=== PATIENT | female | born 1960 | race Caucasian/White ===

== ENCOUNTER → 2019-10-25 10:34 | Outpatient (CLI) | payer OTHER, SELFPAY ==
--- NOTE | ~2019-10-25 | MM_ITS ---
EXAMINATION: MM screening garrett BI w sruthi HISTORY: Screening TECHNIQUE: Craniocaudal and mediolateral oblique 3-D tomosynthesis images were obtained and synthetic 2-D images were generated. CAD analysis was submitted and interpreted. COMPARISON: Comparison to multiple prior studies sequentially, with oldest reviewed study dated 04/2014. BREAST PARENCHYMAL COMPOSITION: There are scattered areas of fibroglandular density. FINDINGS: There is no evidence of suspicious mass, calcification, or architectural distortion to sugg est malignancy in either breast. There has been no suspicious interval change. IMPRESSION: 1. No mammographic evidence of malignancy. 2. Recommend routine screening mammography in one year. BI-RADS Category 1: Negative Reviewed, dictated and finalized at location A.
--- NOTE | ~2019-10-25 | DEXA_ITS ---
Bone Density Report Name: Palma Zuniga Age: 59 Sex: Female Ethnicity: White Date of : 1960 Indication: postmenopausal; screening for osteoporosis; Referring Provider: WILFREDO, SANKET Study: Bone densitometry was performed. Exam Date: October 25, 2019 Accession number: [id number] Bone Density: Region BMD T-score Z-score Classification AP Spine (L1-L4) 1.108 0.6 1.9 Normal Femoral Neck (Left) 0.878 0.3 1.5 Normal Total Hip (Left) 1.088 1.2 2.1 Normal Femoral Neck (Right) 0.919 0.6 1.8 Normal Total Hip (Right) 1.019 0.6 1.5 Normal Total Hip Mean 1.054 0.9 1.8 Normal World Health Organization criteria for BMD impression classify patients as: Normal (T-score at or above -1.0), Osteopenia (T-score between -1.0 and -2.5), or Osteoporosis (T-score at or below -2.5). 10-year Fracture Risk: FRAX not reported because: All T-scores for Spine Total, Hip Total, Femoral Neck at or above -1.0 Clinical Information Provided by Patient: Has used the following medications: Vitamin D, Calcium Patient maximum height was 70.5 Menopause Age: 54 No regular weight bearing exercise Drinks caffeinated beverages Onset of menses at age 13 Number of children 0 Impression: The patient has normal bone mass. Discussion: BONE DENSITY IS ABOVE THE MINIMUM DESIRABLE LEVEL AT ALL SKELETAL SITES TESTED. This patient?s bone mineral density is above the minimum desirable level (T-score -1.0 or better) at all sites measured. The patient should follow a healthful lifestyle (good nutrition with adequate calcium and vitamin D, and appropriate weight-bearing exercise). Follow-Up: Consider repeating this study in 5 years or sooner if there is some new clinical indication. Reported by: ANA M on 10/25/2019 11:09:00 AM. Reviewed, dictated and finalized at location AEden LOWE
== END ==
PROVIDERS: Visit Provider Nurse Practitioner
DX: Z12.31 Encounter for screening mammogram for malignant neoplasm of breast (principal); Z78.0 Asymptomatic menopausal state
CPT/HCPCS: 77063; 77067; 77080

== ENCOUNTER → 2020-10-28 10:06 | Outpatient (CLI) | payer OTHER, SELFPAY ==
--- NOTE | ~2020-10-28 | MM_ITS ---
EXAMINATION: MM screening garrett BI w sruthi HISTORY: Screening mammogram TECHNIQUE: Craniocaudal and mediolateral oblique 3-D tomosynthesis images were obtained and synthetic 2-D images were generated. CAD analysis was submitted and interpreted. COMPARISON: 10/25/2019 bilateral digital screening mammogram 06/22/2018 diagnostic right mammogram and complete right breast ultrasound bilateral digital screening mammogram BREAST PARENCHYMAL COMPOSITION: There are scattered areas of fibroglandular density. FINDINGS: There is a biopsy marker on the left; history of prior benign left breast biopsy. There is no evidence of suspicious mass, calcification, or architectural distortion to suggest malignancy in e ither breast. There has been no suspicious interval change. IMPRESSION: 1. No mammographic evidence of malignancy. 2. Recommend routine screening mammography in one year. BI-RADS Category 1: Negative Reviewed, dictated and finalized at location A.
== END ==
PROVIDERS: PCP Family Medicine; Visit Provider Nurse Practitioner
DX: Z12.31 Encounter for screening mammogram for malignant neoplasm of breast (principal)
CPT/HCPCS: 77063; 77067

== ENCOUNTER → 2021-10-30 10:58 | Outpatient (CLI) | payer OTHER, SELFPAY ==
--- NOTE | ~2021-10-30 | MM_ITS ---
EXAMINATION: MM screening garrett BI w sruthi HISTORY: Screening mammogram TECHNIQUE: Craniocaudal and mediolateral oblique 3-D tomosynthesis images were obtained and synthetic 2-D images were generated. CAD analysis was submitted and interpreted. COMPARISON: 10/28/2020, 10/25/2019 bilateral screening mammogram examinations BREAST PARENCHYMAL COMPOSITION: There are scattered areas of fibroglandular density. FINDINGS: Biopsy marker is again noted on the left; history of prior benign left breast biopsy. Stabl e mild fibroglandular asymmetry. There is no evidence of suspicious mass, calcification, or business intelligence architect ural distortion to suggest malignancy in either breast. There has been no suspicious interval change. IMPRESSION: 1. No mammographic evidence of malignancy. 2. Recommend routine screening mammography in one year. BI-RADS Category 2: Benign finding(s). Reviewed, dictated and finalized at location A.
== END ==
PROVIDERS: PCP Family Medicine; Visit Provider Nurse Practitioner
DX: Z12.31 Encounter for screening mammogram for malignant neoplasm of breast (principal)
CPT/HCPCS: 77063; 77067

== ENCOUNTER → 2022-11-01 11:05 | Outpatient (CLI) | payer OTHER, SELFPAY ==
--- NOTE | ~2022-11-01 | MM_ITS ---
EXAMINATION: MM screening garrett BI w sruthi HISTORY: Screening mammogram TECHNIQUE: Craniocaudal and mediolateral oblique 3-D tomosynthesis images were obtained and synthetic 2-D images were generated. CAD analysis was submitted and interpreted. COMPARISON: 10/30/2021, 10/28/2020, 11/11/2019 bilateral screening mammogram examinations BREAST PARENCHYMAL COMPOSITION: There are scattered areas of fibroglandular density. FINDINGS: Biopsy marker is again noted on the left; history of prior benign left breast biopsy. There is no evidence of suspicious mass, calcification, or architectural distortion to suggest malignancy in either breast. There has been no suspicious interval change. IMPRESSION: 1. No mammographic evidence of malignancy. 2. Recommend routine screening mammography in one year. BI-RADS Category 1: Negative Reviewed, dictated and finalized at location A.
== END ==
PROVIDERS: PCP Family Medicine; Visit Provider Nurse Practitioner
DX: Z12.31 Encounter for screening mammogram for malignant neoplasm of breast (principal)
CPT/HCPCS: 77063; 77067

== ENCOUNTER 2023-11-04 13:06 | Outpatient (CLI) | payer OTHER, SELFPAY ==
--- NOTE | ~2023-11-04 | MM_ITS ---
EXAMINATION: MM screening garrett BI w sruthi HISTORY: Screening mammogram TECHNIQUE: Craniocaudal and mediolateral oblique 3-D tomosynthesis images were obtained and synthetic 2-D images were generated. CAD analysis was submitted and interpreted. COMPARISON: 11/01/2022, 10/30/2021, 10/28/2020, 10/25/2019 BREAST PARENCHYMAL COMPOSITION:Not Dense. There are scattered areas of fibroglandular density. FINDINGS: No suspicious mass, calcification, or architectural distortion are identified in either cari ast to suggest malignancy. There has been no suspicious interval change. IMPRESSION: No mammographic evidence of malignancy. Recommend routine screening mammography in one year. BI-RADS Category 1: Negative Reviewed, dictated and finalized at location .
== END 2023-11-04 13:07 | disposition home or self-care (01) ==
LOC: MICIMG 13:08
PROVIDERS: PCP Family Medicine; Visit Provider Nurse Practitioner
DX: Z12.31 Encounter for screening mammogram for malignant neoplasm of breast (principal)
CPT/HCPCS: 77063; 77067

== ENCOUNTER 2024-04-02 07:58 | Outpatient (CLI) | payer OTHER, SELFPAY ==
--- NOTE | ~2024-04-02 | DEXA_ITS ---
Bone Density Report Name: EUSEBIA EISENBERG Age: 64 Sex: Female Ethnicity: White Date of : 1960 Indication: postmenopausal; screening for osteoporosis; Referring Provider: NITESH, ARABELLA Study: Bone densitometry was performed. Exam Date: April 02, 2024 Accession number: [id number] Bone Density: Region BMD T-score Z-score Classification AP Spine(L1-L4) 1.138 0.8 2.5 Normal Femoral Neck (Left) 0.887 0.3 1.8 Normal Total Hip (Left) 1.064 1.0 2.1 Normal Femoral Neck (Right) 0.954 0.9 2.4 Normal Total Hip (Right) 1.017 0.6 1.7 Normal Total Hip Mean 1.041 0.8 1.9 Normal World Health Organization criteria for BMD impression classify patients as: Normal (T-score at or above -1.0), Osteopenia (T-score between -1.0 and -2.5), or Osteoporosis (T-score at or below -2.5). 10-year Fracture Risk: FRAX not reported because: All T-scores for Spine Total, Hip Total, Femoral Neck at or above -1.0 Clinical Information Provided by Patient: Patient maximum height was 70.5 Menopause Age: 54 No regular weight bearing exercise Drinks caffeinated beverages Onset of menses at age 13 Number of children 0 Impression: The patient has normal bone mass. Discussion: BONE DENSITY IS ABOVE THE MINIMUM DESIRABLE LEVEL AT ALL SKELETAL SITES TESTED. This patient?s bone mineral density is above the minimum desirable level (T-score -1.0 or better) at all sites measured. The patient should follow a healthful lifestyle (good nutrition with adequate calcium and vitamin D, and appropriate weight-bearing exercise). Follow-Up: Consider repeating this study in 5 years or sooner if there is some new clinical indication. Reported by: ANA M on 04/02/2024 8:33:00 AM. Reviewed, dictated and finalized at location A. [facility]
--- OUTSIDE RECORDS SUMMARY | 2024-04-02 08:06 | XMS_ITS | Clinical Summary ---
Author Organization [facility] Address [address] [place] [address] Phone Care Team Providers Care Mathematics Professor Name Role Phone Paradise Villanueva Primary Care Provider [phone] Allergies Active Allergy Reactions Criticality Noted Date Comments Acetaminophen-Codeine Shortness of Breath/Wheezing High 08/21/2020 Medications lisinopril-hydr oCHLOROthiazide (ZESTORETIC) 20-25 mg tablet Take 1 Tablet by mouth daily. Active venlafaxine (EFFEXOR) 75 mg tablet Take 225 mg by mouth daily. Active acyclovir (ZOVIRAX) 400 mg tablet Take 400 mg by mouth daily. Active buPROPion HCL (WELLBUTRIN XL) 150 mg Extended Release 24 hour tablet Take 150 mg by mouth daily. Active simvastatin (ZOCOR) 20 mg tablet Take 20 mg by mouth daily at bedtime. Active calcium as carbonate (CALTRATE) 1,500 mg (600 mg elemental) Tablet Take 600 mg by mouth daily. Active cholecalciferol , vitamin D3, 5,000 unit Take 5,000 Units by mouth daily. Active diazePAM (VALIUM) 5 mg tabletIndicatio ns:Cervical stenosis of spine Take 1 Tablet (5 mg) by mouth every 8 hours as needed for Spasm. 60 Tablet 09/03/2020 10:42 AM CDT 09/03/2020 Active docusate sodium (COLACE) 100 mg capsule Take 1 Capsule (100 mg) by mouth 2 times daily as needed for Constipation . 30 Capsule 09/03/2020 10:42 AM CDT 09/03/2020 Active HYDROcodone-asya taminophen (NORCO) 7.5-325 mg TabletIndicatio ns:Cervical stenosis of spine Take 1 Tablet by mouth every 4 hours as needed for Pain. Max Daily Amount: 6 Tablets 42 Tablet 09/03/2020 10:42 AM CDT 09/03/2020 Active Social History Tobacco Use Types Packs/Day Years Used Date Smoking Tobacco: Never Smokeless Tobacco: Never Alcohol Use Standard Drinks/Week Comments Not Currently 0 (1 standard drink = 0.6 oz pur e alcohol) Comments No Sex and Gender Information Value Date Recorded Sex Assigned at Not on file Legal Sex Female 3:45 PM CDT Gender Identity Not on file Sexual Orientation Not on file Last Filed Vital Signs Vital Sign Reading Time Taken Comments Blood Pressure 146/71 09/03/2020 11:23 AM CDT Pulse 63 09/03/2020 11:23 AM CDT Temperature 36.7 C (98.1 F) 09/03/2020 11:23 AM CDT Respiratory Rate 18 09/03/2020 11:23 AM CDT Oxygen Saturation 100% 09/03/2020 11:23 AM CDT Inhaled Oxygen Concentration - - Weight 116.6 kg (257 lb) 09/02/2020 8:31 AM CDT Height 177.8 cm (5' 10 ) 09/02/2020 8:31 AM CDT Body Mass Index 36.88 09/02/2020 8:31 AM CDT Plan of Treatment Health Maintenance Due Date Last Done Comments CERVICAL CANCER SCREENING 1991 BREAST CANCER SCREENING 2001 COLORECTAL SCREENING 2006 Colorectal Cancer Screening 2006 FIT-DNA Q 3 years 2006 FIT/FOBT Q 1 year 2006 Flex Sig/CT Colonography Q 5 years 2006 ZOSTER VACCINE (1 of 2) 2011 DTAP/TDAP/TD VACCINES (2 - T d or Tdap) 03/13/2023 03/13/2013, 07/25/2003 INFLUENZA VACCINE (#1) 2023 RSV VACCINE (60+ or ) (1 - 1-dose 75+ series) 02/13/2036 PNEUMOCOCCAL VACCINE 0-64 YEARS Aged Out No longer eligible b ased on patient's age to complete this topic Medical Devices Implanted Type Area Respiratory Care Program Director Device Identifier Shelf Expiration Date Model / Serial / Lot Hemostatic Surgiflo 8ml W/Thrombin 2994 - [id number] Implanted:Qty: 1 on 09/02/2020 by Ray Kennedy MD at [facility] Hemostatic N/A: Neck [employer] 08/20/2021 [id number] / / [id number] Plate Zevo Ac 3lvl Ti 57mm [id number] - [id number] Implanted:Qty: 1 on 09/02/2020 by Ray Kennedy MD at [facility] Plate N/A: Spine Cervical Anterior [employer]AMOR DANEK [id number] / / N/A Description:Load no. [id number] Sterilized Sep 01 Screw Zevo Va Sd 3.5x13mm [id number] - [id number] Implanted:Qty: 8 on 09/02/2020 by Ray Kennedy MD at [facility] Screw N/A: Spine Cervical Anterior [employer]AMOR [employer]ANEK [id number] / / N/A Description:Load no. [id number] Sterilized Sep 01 Allograft Bone Cornerstone [id number] - [id number] Implanted:Qty: 1 on 09/02/2020 by Ray Kennedy MD at [facility] N/A: Spine Cervical Anterior [employer] SOFAMOR DANEK 11/27/2022 [id number] / [id number] / [id number] Description:AKUA REQ#[id number] Allograft Bone Cornerstone [id number] - [id number] Implanted:Qty: 1 on 09/02/2020 by Ray Kennedy MD at [facility] N/A: Spine Cervical Anterior [employer]- SOFAMOR DANEK 01/28/2023 [id number] / [id number] / [id number] Allograft Bone Cornerstone [id number] - [id number] Implanted:Qty: 1 on 09/02/2020 by Ray Kennedy MD at [facility] N/A: Spine Cervical Anterior [employer] SOFAMOR DANEK 01/09/2023 [id number] / [id number] / [id number] Explanted Type Area Respiratory Care Program Director Device Identifier Shelf Expiration Date Model / Serial / Lot Pin Holding Zevo Plate [id number] - [id number] Explanted:Qty : 2 on 09/02/2020 by Ray Kennedy MD at [facility] Plate N/A: Spine Cervical Anterior [employer]- SOFAMOR WEST [id number] / / N/A Description:Load no. [id number] Sterilized Sep 01 [facility]#[id number] Insurance [facility] Address: [place] [address] RX [employer] PLANS (INTERNAL) [facility] RX [employer] RX Member Subscriber Plan / Payer (Ef fective for All Dates) Name:Palma Zuniga Relation to Subscriber:Self Name:Palma Zuniga Payer ID:Not on file Group ID:[id number] Type:RX Commercial Address: [place] [place] Advance Directives For more information, please contact: [phone] * Full Code (Latest Code Status on File) Date Activated Date Inactivated Comments 09/03/2020 8:18 AM 09/03/2020 1:45 PM Care Teams Mathematics Professor Relationship Specialty Start Date End Date Paradise Villanueva DO [address] [place] [id number] PCP - General Family Practice 08/22/20
--- OUTSIDE RECORDS SUMMARY | 2024-04-02 08:06 | XMS_ITS | Encounter Summary ---
Author Organization [facility] Address 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 mechanic Encounter Details Date Type Department Care Team (Late st Contact Info) Description 09/03/2020 Telephone [facility] Admitting [address] [place] [address] [place] [id number] [address] Medical Management (Spoke Alec/ Sunita @ Dr Lu Oneill conduit mechanic) Social History Tobacco Use Types Packs/Day Years Used Date Smoking Tobacco: Never Smokeless Tobacco: Never Alcohol Use Standard Drinks/Week Comments Not Currently 0 (1 standard drink = 0.6 oz pur e alcohol) Comments No Sex and Gender Information Value Date Recorded Sex Assigned at Not on file Legal Sex Female 3:45 PM CDT Gender Identity Not on file Sexual Orientation Not on file COVID-19 Exposure Response Date Recorded In the last month, have you been in contact with someone who was confirmed or suspected to have Coronavirus / COVID-19? No / Unsure 09/02/2020 5:32 PM CDT documented as of this encounter Plan of Treatment Not on file documented as of this encounter Visit Diagnoses Not on filedocumented in this encounter Care Teams Fresh Work Inspector Relationship Specialty Start Date End Date Paradise Villanueva DO [address] [place] [address] [address] [place] [address] PCP - General Family Practice 08/22/20 documented as of this encounter
--- OUTSIDE RECORDS SUMMARY | 2024-04-02 08:06 | XMS_ITS | Clinical Summary ---
Author Organization [facility] Address [facility] [place] [address] Care Team Providers Care Breaker Tender Name Role Phone RichParadise Danuta DO Primary Care Provider Yoshi Loaiza DO Unavailable [phone] Allergies Active Allergy Reactions Criticality Noted Date Comments Acetaminophen-Codeine Shortness of Breath High 08/21 Codeine Unknown 08/29/2012 Estrogens Other (see comment) 09/06/2012 Medications Azelaic Acid 15 % gel Apply topically 2 (two) times daily. APPLY TO AFFECTED AREA 3 Active venlafaxine XR (EFFEXOR-XR) 75 MG 24 hr capsuleIndication s:Depression, unspecified depression type Take 3 capsules (225 mg total) by mouth daily. 270 capsule 3 3 Active lisinopril-hydroC HLOROthiazide (ZESTORETIC) 20-25 MG tabletIndications :Primary hypertension Take 1 tablet by mouth daily. 90 tablet 3 3 Active buPROPion XL (WELLBUTRIN XL) 150 MG 24 hr tabletIndications :Depression, unspecified depression type Take 1 tablet (150 mg total) by mouth daily. 90 tablet 3 3 Active acyclovir (ZOVIRAX) 400 MG tabletIndications :Herpes simplex type II infection Take 1 tablet (400 mg total) by mouth daily. 90 tablet 3 3 Active simvastatin (ZOCOR) 40 MG tabletIndications :Hypercholesterol emia Take 1 tablet (40 mg total) by mouth nightly at bedtime. 90 tablet 1 3 Active Active Problems Problem Noted Date Diagnosed Date H/O cervical spine surgery 09/18/2020 Morbid obesity (CMS/HCC HHS/HCC) 08/14/2020 Hand dermatitis 08/14/2020 Elevated fasting glucose 03/16/2016 Cervical stenosis of spine 03/20/2015 Acne 11/26/2014 Eczema 03/13/2013 Depression 09/04/2012 Herpes simplex type II infection 09/04/2012 Hypercholesterolemia 09/04/2012 Hypertension 09/04/2012 Overview (06/09/2019): Description: 01/25/1997 Lumbar degenerative disc disease 09/04/2012 Resolved Problems Problem Noted Date Diagnosed Date Resolved Date Preventative health care 09/29/2021 Screening for colon cancer 09/29/2021 0 10/05/2021 Hospital discharge follow-up 09/18/2020 09/22/2020 Preventative health care 08/14/2020 Need for prophylactic vaccin ation and inoculation against influenza 10/31/2019 11/02/2019 Encounter for screening mamm ogram for malignant neoplasm of breast 06/28/2019 11/02/2019 Need for shingles vaccine 06/28/2019 Encounter for preventive health examination 08/29/2012 11/02/2019 Immunizations Name Administration Dates Next Due Flublok (Quadrivalent) 10/31/2019 Influenza (Generic) 10/22/2016,03/02/2016,2013 Influenza Adult (Generic) 12/12/2018,12/21/2017 PFIZER COVID-19 (ORIGINAL FO RMULATION, PURPLE CAP) mRNA, LNP-S, PF, 30 MCG/0.3 ML DOSE 07/31/2020,07/10/2020 Shingrix 10/31/2019,06/28/2019 Td (Tenivac) preservative free 07/25/2003 Tdap (Generic) 03/13/2013 Family History Medical History Relation Comments Breast Cancer Maternal Aunt RENAL FAILURE Mother Diabetes Other Hypertension Other CERVICAL CANCER Sister Relation Status Comments Maternal Aunt Mother Other Sister Social History Tobacco Use Types Packs/Day Years Used Date Smoking Tobacco: Never Smokeless Tobacco: Never Alcohol Use Standard Drinks/Week Comments Yes 0 (1 standard drink = 0.6 oz pur e alcohol) 2-3 BEERS A WEEK PHQ-2 Answer Date Recorded Patient Health Questionnaire-2 Score 0 10/06/2022 Comments Unknown Sex and Gender Information Value Date Recorded Sex Assigned at Not on file Legal Sex Female 7:19 PM CDT Gender Identity Not on file Sexual Orientation Not on file Occupation Industry Job Start Date Job End Date [employer] Not on file Not on file Not on file Last Filed Vital Signs Vital Sign Reading Time Taken Comments Blood Pressure 120/68 10/06/2022 8:56 AM CDT Pulse 70 10/06/2022 8:56 AM CDT Temperature - - Respiratory Rate - - Oxygen Saturation 98% 01/16/2020 10:51 AM 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 Inhaled Oxygen Concentration - - Weight 117.9 kg (260 lb) 10/06/2022 8:56 AM CDT Height 177.8 cm (5' 10 ) 10/06/2022 8:56 AM CDT Body Mass Index 37.31 10/06/2022 8:56 AM CDT Plan of Treatment Health Maintenance Due Date Last Done Comments Cervical Cancer Screening Pap Smear (Age 30 to 64) Every 3 Years 1961 Hepatitis C 1979 Cervical Cancer Screening Pap with HPV Testing (Age 30 to 64) Every 5 Years 1991 Cervical Cancer Screening with HPV 1991 Colorectal Cancer Screening Colonoscopy (10 Years) 09/21/2021 09/22/2011 DTaP, Tdap and Td Vaccines (2 - Td or Tdap) 03/13/2023 03/13/2013, 07/25/2003 Annual Physical 10/07/2023 10/06/2022, 0810/2021, 08/14/2020, Additional history exists COVID-19 Vaccine ( season) 2023 03/01/2021, 07/31/2020, 07/10/2020 Mammogram Screening 10/31/2023 10/30/2021, 10/28/2020, 06/16/2013 Influenza Adult (#1) 2023 03/01/2021, 10/31/2019, 12/12/2018, Additional history exists RSV Immunization or 60+ Years (1 - 1-dose 75+ series) 02/13/2036 Zoster Vaccines Completed 10/31/2019, 06/28/2019 Meningococcal B Vaccine Aged Out No l onger eligible based on patient's age to complete this topic Meningococcal Vaccine Aged Out No casper linda eligible based on patient's age to complete this topic Pneumococcal Vaccine: Pediatrics (0 to 5 Years) and At-Risk Patients (6 to 64 Years) Aged Out No longer eligible based on patient's age to complete this topic RSV Immunizations Under 20 Months Aged Out No longer eligible based on patient's age to complete this topic Procedures Procedure Name Priority Date/Time Associated Diagnosis Comments MAMMOGRAM GENERIC (SCAN ORDER) Routine 10/30/2021 COLONOSCOPY Routine 09/22/2011 12:00 AM CDT from Last 3 Months or Most Recently Relevant to Health Maintenance Results * MAMMOGRAM (10/30/2021) Anatomical Region Laterality Modality Other us Documents Scanned SCANNING Final Result * Colonoscopy (09/22/2011 12:00 AM CDT) 09/22/2011 09/22/2011 Narrative [facility] TO EPIC CONVERSION - 09/22/2011 12:00 AM CDT Documented hx of procedure Procedure Note Riki Brunson MD - 12/25/2017 Documented hx of procedure us Generic Conversion Md BRUNSON GI PROCEDURE ORDERABLES Final Result [facility] TO EPIC CONVERSION from Last 3 Months or Most Recently Relevant to Health Maintenance Insurance [facility] Care Teams Breaker Tender Relationship Specialty Start Date End Date Paradise Villanueva DO [address] [place] [address] PCP - General 02/26/15 Yoshi Loaiza DO [address] [place] [address] Director Print 11/17/21
--- OUTSIDE RECORDS SUMMARY | 2024-04-02 08:06 | XMS_ITS | Clinical Summary ---
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 Name Role Phone Unknown, Notinfile Unavailable Unavailable Deion Pelaez DO Primary Care Provider Allergies Active Allergy Reactions Criticality Noted Date Comments Acetaminophen-Codeine Shortness of breath High 08/21 Codeine Unknown 08/29/2012 Medications Cequa 0.09 % dropperette INSTILL ONE DROP IN EACH EYE TWICE DAILY 03/07/19 24 Active Miebo 100 % drops 05/27/19 24 Active azelaic acid 15 % gel Apply topically 2 (two) times a day 09/11/19 23 Active acyclovir (ZOVIRAX) 400 mg tablet Take 1 tablet (400 mg total) by mouth daily 100 tablet 10/21/19 24 Active buPROPion XL (WELLBUTRIN XL) 150 mg 24 hr tablet Take 1 tablet (150 mg total) by mouth daily 90 tablet 1 10/21/19 24 Active lisinopril-hydr oCHLOROthiazide (ZESTORETIC) 20-25 mg per tablet Take 1 tablet by mouth daily 90 tablet 1 10/21/19 24 Active venlafaxine XR (EFFEXOR-XR) 75 mg 24 hr capsule Take 1 capsule (75 mg total) by mouth daily 90 capsule 1 10/21/19 24 Active simvastatin (ZOCOR) 40 mg tabletIndicatio ns:Dyslipidemia TAKE 1 TABLET BY MOUTH EVERY DAY 90 tablet 1 03/05/19 25 Active simvastatin (ZOCOR) 40 mg tabletIndicatio ns:Dyslipidemia Take 1 tablet (40 mg total) by mouth daily 100 tablet 10/21/19 24 025 Discontinued Active Problems Problem Noted Date Diagnosed Date Dyslipidemia 05/30/2023 Overview (05/30/2023): Chronic, stable condition statin LDL was 140 in September 2022 and her Zocor was increased from 20 to 40 mg Routine physical examination 05/30/2023 Overview (05/30/2023): New: May 30, 2023 Neuropathy 05/30/2023 Mild mood disorder 05/30/2023 Overview (05/30/2023): Doing well overall on Effexor Continue same medications Morbid obesity 08/14/2020 Overview (05/30/2023): BMI 38 with hypertension and dyslipidemia Working on weight management Elevated fasting glucose 03/16/2016 Overview (05/30/2023): Overall doing well Fasting glucose: 135 in June 2019, 129 in July 2020, 134 in September 2022 A1c 5.9 in September 2021 A1c 6.2 in September 2022 Hypertension 09/04/2012 Overview (05/30/2023): Description: 01/25/1997 Chronic, stable condition on Zestoretic Continue same medications Lumbar degenerative disc disease 09/04/2012 Immunizations Name Administration Dates Next Due Influenza, Quadrivalent, Rec ombinant, Egg Free, Preservative Free, Intramuscular 10/31/2019 Influenza, Quadrivalent, Spl it, Preservative Free, Intramuscular 12/12/2018 Influenza, Unspecified 11/21/2022,2018,12/21/2017,10/22,03/02/2016,03/13/2013 Pfizer SARS-CoV-2 Monovalent Vaccination (12+ Yrs) PURPLE 07/10/2020 TD Preservative Free 07/25/2003 Tdap 03/13/2013 ZOSTER Recombinant 10/31/2019,06/28/2019 Surgical History Surgery Date Site/Laterality Comments BREAST SURGERY BIOPSY CHOLECYSTECTOMY DILATION AND CURETTAGE OF UTERUS EYE SURGERY HEMANGIOMA EXCISION Right Eyelid Social History Tobacco Use Types Packs/Day Years Used Date Smoking Tobacco: Never Tobacco Cessation:Counseling Given: Not Answered AUDIT-C Answer Date Recorded Q1: How often do you have a drink containing alc ohol? 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 Gender Identity Not on file Sexual Orientation Not on file Obstetrics History Last Filed Vital Signs Vital Sign Reading Time Taken Comments Blood Pressure 124/80 05/30/2023 10:22 AM CDT Pulse 65 05/30/2023 10:22 AM CDT Temperature 36.4 C (97.6 F) 05/30/2023 10:22 AM CDT Respiratory Rate 18 05/30/2023 10:2 2 AM CDT Oxygen Saturation 97% 05/30/2023 10: 22 AM CDT Inhaled Oxygen Concentration - - Weight 121.3 kg (267 lb 6.4 oz) 024 10:22 AM CDT Height 177.8 cm (5' 10 ) 05/30/2023 10: 22 AM CDT Body Mass Index 38.37 05/30/2023 10:22 AM CDT Plan of Treatment Health Maintenance Due Date Last Done Comments Cervical Cancer Screening 1960 Hepatitis B Screening 1979 DTaP/Tdap/Td Vaccine (2 - Td or Tdap) 03/13/2023 03/13/2013, 07/25/2003 Covid-19 Vaccine (3 - season) 2023 07/31/2020, 07/10/2020 Influenza Vaccine (#1) 2023 , 10/31/2019, 12/12/2018, Additional history exists Depression Screening 05/29/2024 05/30/2023 Regular Well Visit/Exam 18-64 05/29/2024 05/30/2023 Breast Cancer Screening-Mammogram 11/03/2024 11/04/2023, 11/01/2022 Colon Cancer Screening-Colonoscopy 09/21/2026 09/21/2021 Zoster Vaccine Completed 10/31/2019, 06/28/2019 Hepatitis C Screening Completed 05/30/2023 Pneumococcal vaccine <65 Aged Out No longer eligible based on patient's age to complete this topic Procedures Procedure Name Priority Date/Time Associated Diagnosis Comments SCREENING MAMMOGRAM BILATERAL W XIANG Schedule Routine, Read Routine (OP Routine) 11/04/2023 HEPATITIS C ANTIBODY Routine 05/30/2023 10:54 AM CDT Need for hepatitis C screening test COLONOSCOPY Routine 09/21/2021 from Last 3 Months or Most Recently Relevant to Health Maintenance Results * Screening Mammogram Bilateral W Xiang (11/04/2023) Anatomical Region Laterality Modality Breast Bilateral Mammography Historical Provider MD RUIZ MAMMO PROCEDURES Yadira marlene Result * Hepatitis C antibody Blood (05/30/2023 10:54 AM CDT) Hep C Ab Nonreactive Nonreactive Comment: Antibodies to HCV not detected. Does NOT exclude the possibility of recent exposure to HCV. Current interpretive data was last revised on 21 Interpretive Data Nonreactive: Antibodies to HCV not detected. Does NOT exclude the possibility of recent exposure to HCV. Equivocal: Equivocal for HCV antibodies. Supplemental molecular testing will be automatically performed to determine infection status in accordance with current CDC screening recommendations. Reactive: Positive for HCV antibodies. This may represent current or past HCV infection. Supplemental molecular testing will be automatically performed to determine current infection status in accordance with current CDC screening recommendations. Interpretive data was last revised on 2019. Blood 05/30/2023 10:5 4 AM CDT 05/30/2023 2:35 PM CDT Deion Pelaez DO LAB MICROBIOLOGY - GEN ERAL ORDERABLES Final Result [facility] [address] [facility] Department of Laboratories [place], [place] [id number] * Colonoscopy (09/21/2021) Anatomical Region Laterality Modality Other us Historical Provider ENDOSCOPY PROCEDURES Yadira l Result from Last 3 Months or Most Recently Relevant to Health Maintenance Insurance [facility] PL[facility] Care Teams Welding Machine Operator Ultrasonic Relationship Specialty Start Date End Date Deion Pelaez DO [address] [place] [id number] PCP - General Family Medicine 05/30/23 Unknown, Notinfile 07/03/19
--- OUTSIDE RECORDS SUMMARY | 2024-04-02 08:06 | XMS_ITS | Referral Summary ---
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 Gender Identity Not on file Sexual Orientation [...] 05/30/2023 10:22 AM CDT Plan of Treatment Not on file Procedures Procedure Name Priority Date/Time Associated Diagnosis Comments SCREENING MAMMOGRAM BILATERAL W ROBERT Schedule Routine, Read Routine (OP Routine) 11/04/2023 HEPATITIS C ANTIBODY Routine 05/30/2023 10:54 AM CDT Need for hepatitis C screening test COLONOSCOPY Routine 09/21/2021 from Last 3 Months or Most Recently Relevant to Health Maintenance Results * Screening Mammogram Bilateral W Robert (11/04/2023) Anatomical Region Laterality Modality Breast Bilateral Mammography us Historical Provider MD RUIZ MAMMO PROCEDURES Yadira l Result * Hepatitis C antibody Blood (05/30/2023 [...] MICROBIOLOGY - GEN ERAL ORDERABLES Final Result Performing Organization Address City/State/[facility] Co de Phone Number [facility] [address] [facility] [place] [address] * Colonoscopy (09/21/2021) Anatomical Region Laterality Modality Other Historical Provider ENDOSCOPY PROCEDURES Yadira l Result from Last 3 Months or Most Recently Relevant to Health Maintenance Insurance [facility] CHO[employer] PLUS Care Teams Milk Tanker Driver Relationship Specialty Start Date End Date Deion Pelaez DO [address] [place] [id number] PCP - General Family Medicine 05/30/23 Unknown, Notinfile 07/03/19
== END 2024-04-02 07:59 | disposition home or self-care (01) ==
LOC: ANHIMG 08:03
PROVIDERS: PCP Family Medicine; Visit Provider Nurse Practitioner
DX: Z78.0 Asymptomatic menopausal state (principal)
CPT/HCPCS: 77080

== ENCOUNTER 2024-05-24 11:08 | Outpatient (CLI) | payer OTHER, SELFPAY ==
--- NOTE | ~2024-05-24 | US_ITS ---
EXAM: PELVIC ULTRASOUND HISTORY: Post menopausal bleeding COMPARISON: None. FINDINGS: UTERUS: 8.7 x 4.8 x 4.9 cm. The endometrial complex is thickened and heterogeneous measuring 12.2 mm. RIGHT OVARY: Despite prolonged interrogation, the right ovary was not visualized. LEFT OVARY: Despite prolonged interrogation, the left ovary was not visualized. No free fluid is identified within the pelvis. IMPRESSION: Thickened complex endometrial cavity, as detailed above. Reviewed, dictated and finalized at location A.
== END 2024-05-24 11:09 | disposition home or self-care (01) ==
LOC: MICIMG 11:09
PROVIDERS: PCP Family Medicine; Visit Provider Nurse Practitioner
DX: N95.0 Postmenopausal bleeding (principal)
CPT/HCPCS: 76830

== ENCOUNTER 2024-06-12 12:09 | Outpatient (CLI) | payer OTHER, SELFPAY ==
[2024-06-12 13:09] LABS: Anion Gap 12 mmol/L (4-12); Blood Urea Nitrogen 19 mg/dL (7-17); Calcium 9.3 mg/dL (8.4-10.2); Carbon Dioxide 25 mmol/L (22-30); Chloride 100 mmol/L (98-107); Estimated Glomerular Filt Rate > 60; Glucose 176 mg/dL (65-110); Potassium 4.2 mmol/L (3.4-5.0); Sodium 137 mmol/L (137-145)
--- OUTSIDE RECORDS SUMMARY | 2024-06-12 13:56 | XMS_ITS | Referral Summary ---
Author Organization [facility] al Address [address] [place] [address] Care Team Providers Care Planning Advisor Name Role Phone Unknown, Notinfile Unavailable Unavailable Deion Pelaez DO Primary Care Provider Encounters Date Type Department Care Team Description 06/12/2024 Results Follow-Up [facility] [address] [place] [phone] Deion Pelaez DO 06/11/2024 3:00 PM CDT Lab [facility] Office Building [address] [place] [id number] Dyslipidemia; Need for hepatitis B screening test; Primary hypertension 06/11/2024 2:30 PM CDT Office Visit [facility] [address] [place] [phone] Deion Pelaez DO Need for hepatitis B screening test (Primary Dx); Dyslipidemia; Primary hypertension; Morbid obesity (HCC); Routine physical examination; Mild mood disorder; Neuropathy; Degeneration of intervertebral disc of lumbar region with discogenic back pain 04/02/2024 Orders Only [facility] Information Management [address] [place] [id number] Scanning, Provider from Last 3 Months Allergies Active Allergy Reactions Criticality Noted Date Comments Acetaminophen-Codeine Shortness of breath High 08/21 Codeine Unknown 08/29/2012 Estrogens Other (See comments) 09/06/2012 Medications Cequa 0.09 % dropperette INSTILL ONE DROP IN EACH EYE TWICE DAILY 4 Active Miebo 100 % drops 4 Active venlafaxine XR (EFFEXOR-XR) 75 mg 24 hr capsuleIndicatio ns:Mild mood disorder Take 3 capsules (225 mg total) by mouth daily 270 capsule 3 5 06/12/19 26 Active simvastatin (ZOCOR) 40 mg tabletIndication s:Dyslipidemia Take 1 tablet (40 mg total) by mouth daily 90 tablet 3 5 Active lisinopril-hydro CHLOROthiazide (ZESTORETIC) 20-25 mg per tabletIndication s:Primary hypertension Take 1 tablet by mouth daily 90 tablet 3 5 Active buPROPion XL (WELLBUTRIN XL) 150 mg 24 hr tabletIndication s:Mild mood disorder Take 1 tablet (150 mg total) by mouth daily 90 tablet 3 5 Active acyclovir (ZOVIRAX) 400 mg tabletIndication s:Routine physical examination Take 1 tablet (400 mg total) by mouth daily 90 tablet 3 5 Active azelaic acid 15 % gel Apply topically 2 (two) times a day 3 06/12/19 25 Discontin ued(Thera py completed ) acyclovir (ZOVIRAX) 400 mg tablet Take 1 tablet (400 mg total) by mouth daily 100 tablet 4 06/12/19 25 Discontin ued(Reord er) buPROPion XL (WELLBUTRIN XL) 150 mg 24 hr tablet Take 1 tablet (150 mg total) by mouth daily 90 tablet 1 4 06/12/19 25 Discontin ued(Reord er) lisinopril-hydro CHLOROthiazide (ZESTORETIC) 20-25 mg per tablet Take 1 tablet by mouth daily 90 tablet 1 4 06/12/19 25 Discontin ued(Reord er) venlafaxine XR (EFFEXOR-XR) 75 mg 24 hr capsule Take 1 capsule (75 mg total) by mouth daily 90 capsule 1 4 06/12/19 25 Discontin ued(Reord er) simvastatin (ZOCOR) 40 mg tabletIndication s:Dyslipidemia TAKE 1 TABLET BY MOUTH EVERY DAY 90 tablet 1 5 06/12/19 25 Discontin ued(Reord er) Active Problems Problem Noted Date Diagnosed Date Dyslipidemia 05/30/2023 Overview (05/30/2023): Chronic, stable condition statin LDL was 140 in September 2022 and her Zocor was increased from 20 to 40 mg Routine physical examination 05/30/2023 Overview (05/30/2023): New: May 30, 2023 Neuropathy 05/30/2023 Overview (06/11/2024): Distal neuropathy of feet/toes Continue to monitor symptoms Mild mood disorder 05/30/2023 Overview (06/11/2024): Doing well overall on Effexor and Wellbutrin Continue same medications Morbid obesity 08/14/2020 Overview [...] same medications Lumbar degenerative disc disease 09/04/2012 Overview (06/11/2024): Chronic low back pain with degenerative changes Staying active Immunizations Immunization Administration Dates Next Due Influenza, Quadrivalent, Rec ombinant, Egg Free, Preservative Free, Intramuscular 10/31/2019 Influenza, Quadrivalent, Spl it, Preservative Free, Intramuscular 12/12/2018 Influenza, Unspecified 05/20/2024(Deferr ed: Patient Refused),11/21/2022,12/12/2018, 018,10/22/2016,03/02/2016,03/13/2013 Pfizer SARS-CoV-2 Monovalent Vaccination (12+ Yrs) PURPLE 07/10/2020 TD Preservative Free 07/25/2003 Tdap 03/13/2013 ZOSTER Recombinant 10/31/2019,06/28/2019 Social History Tobacco Use Types Packs/Day Years Used Date Smoking Tobacco: Never Smokeless Tobacco: Never Tobacco Cessation:Counseling Given: Not Answered AUDIT-C Answer Date Recorded Q1: How often do you have a drink containing alcohol? Never 06/11/2024 Q2: How many drinks containi ng alcohol do you have on a typical day when you are drinking? Patient does not drink Q3: How often do you have si x or more drinks on one occasion? 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[employer] Gender Identity Not on file Sexual Orientation Not on file Last Filed Vital Signs Vital Sign Reading Time Taken Comments Blood Pressure 110/68 06/11/2024 1:51 PM CDT Pulse 73 06/11/2024 1:51 PM CDT Temperature 36.6 C (97.8 F) 06/11/2024 1:51 PM CDT Respiratory Rate 20 06/11/2024 1:51 PM CDT Oxygen Saturation 97% 06/11/2024 1:51 PM CDT Inhaled Oxygen Concentration - - Weight 121 kg (266 lb 12.8 oz) 06/11/2024 1:51 P M CDT Height 177.8 cm (5' 10 ) 06/11/2024 1:51 PM CDT Body Mass Index 38.28 06/11/2024 1:51 PM CDT Plan of Treatment Not on file Procedures Procedure Name Priority Date/Time Associated Diagnosis Comments EGFR Routine 06/11/2024 2:30 PM CDT Primary hypertension COMPREHENSIVE METABOLIC PANEL Routine 06/11/2024 2:30 PM CDT Primary hypertension LIPID PANEL Routine 06/11/2024 2:30 PM CDT Dyslipidemia HEPATITIS B SURFACE ANTIGEN Routine 06/11/2024 2:30 PM CDT Need for hepatitis B screening test HEPATITIS B CORE ANTIBODY, TOTAL Routine 06/11/2024 2:30 PM CDT Need for hepatitis B screening test HEPATITIS B SURFACE ANTIBODY (IMMUNE STATUS) Routine 06/11/2024 2:30 PM CDT Need for hepatitis B screening test SCAN - RADIOLOGY/IMAGING 04/02/2024 DEXA AXIAL SKELETON BONE DENSITY 1 OR MORE SITES Schedule Routine, Read Routine (OP Routine) 04/02/2024 SCREENING MAMMOGRAM BILATERAL W XIANG Schedule Routine, Read Routine (OP Routine) 11/04/2023 HEPATITIS C ANTIBODY Routine 05/30/2023 10:54 AM CDT Need for hepatitis C screening test COLONOSCOPY Routine 09/21/2021 from Last 3 Months or Most Recently Relevant to Health Maintenance Results * eGFR (06/11/2024 2:30 PM CDT) eGFR 72 >=60 mL/min/1. 73 m2 Comment: Interpretive Data Reference Interval Normal >/= 90 mL/min/1.73m2 Mildly decreased* 60 - 89 mL/min/1.73m2 Mildly to moderately decreased 45 - 59 mL/min/1.73m2 Moderately to severely decreased 30 - 44 mL/min/1.73m2 Severely decreased 15 - 29 mL/min/1.73m2 Kidney Failure < 15 mL/min/1.73m2 *Relative to young adult level Estimated glomerular filtration rate is determined by the 2020 CKD-EPI equation recommended by the National Kidney Foundation (A Unifying Approach to GFR Estimation: Recommendations of the NKF-ASK Task Force on Reassessing the Inclusion of Race in Diagnosing Kidney Disease, JASN 2020). The CKD-EPI equation should not be used for patients with unstable renal function and has not been validated in children and those over 70. Current interpretive data was last reviewed 2020. Testing performed by: [facility], [address] [place] [address]., [address] Blood 06/11/2024 2:30 PM CDT 06/11/2024 3:57 PM CDT [facility] Benigno DO LAB BLOOD ORDERABLES F inal Result Performing Organization Address City/[facility] Co de Phone Number [address] [phone] * Hepatitis B core antibody, total Blood (06/11/2024 2:30 PM CDT) Pathologist [facility] [place] Hep B core IgG/IgM Nonreactive Nonreactive Comment:Testing performed by : [facility], [address] [place]., [address] Blood 06/11/2024 2:30 PM CDT 06/11/2024 8:17 PM CDT [facility] MICROBIOLOGY - GEN ERAL ORDERABLES Final Result Performing Organization Address [facility] Co de Phone Number [address] [phone] * Hepatitis B surface antibody (immune status) Blood (06/11/2024 2:30 PM CDT) Pathologist [facility] [place] HBsAb (immune status) Nonreactive Comment: Interpretive Data Nonreactive: This result is consistent with a lack of immunity to Hepatitis B Virus when used in the setting of routine screening. Equivocal: The immune status of the individual should be further assessed, if appropriate, after consideration of clinical status, risk factors, and additional diagnostic information. Reactive: This result is consistent with immunity to Hepatitis B Virus when used in the setting of routine screening. Current interpretive data was last revised on 19. Blood 06/11/2024 2:30 PM CDT 06/11/2024 4:48 PM CDT Deion Kishore Chittenden DO LAB MICROBIOLOGY - GEN ERAL ORDERABLES Final Result Performing Organization Address City/[facility] Co de Phone Number MAKAYLA [address] [facility] Department [place] [address] * Hepatitis B Surface Antigen Blood (06/11/2024 2:30 PM CDT) HepBsAg Nonreactive Nonreactive Blood 06/11/2024 2:30 PM CDT 06/11/2024 4:48 PM CDT Deion Pelaez DO LAB MICROBIOLOGY - GEN ERAL ORDERABLES Final Result Performing Organization Address City/[facility] Co de Phone Number MAKAYLA [address] [facility] Department [place] [address] * (ABNORMAL) Lipid panel (06/11/2024 2:30 PM CDT) Cholesterol 180 30 - 199 mg/dL Comment: Interpretive Data Ages < or = 19 years Acceptable: <170 mg/dL Borderline high: 170-199 mg/dL High: >or= 200 mg/dL Ages > or = 20 years Desirable: <200 mg/dL Borderline high: 200-239 mg/dL High: >or= 240 mg/dL Literature References: 1. Expert Panel on Integrated Guidelines for Cardiovascular Health and Risk Reduction in Children and Adolescents. Pediatrics 2011;128:S213 2. NCEP Expert Panel. Circulation 2004;110:227 Current Interpretive Data was last revised on 2017. Testing performed by: [facility], [address] [place] [address]., [address] Triglycerides 203(H) <=149 mg/dL [facility] Comment: Interpretive Data Ages < or = 9 years Acceptable: <75 mg/dL Borderline high: 75-99 mg/dL High: >or= 100 mg/dL Ages 10 to 20 years Acceptable: <90 mg/dL Borderline high: 90-129 mg/dL High: >or= 130 mg/dL Ages > or = 20 years Desirable: <150 mg/dL Borderline high: 150-199 mg/dL High: 200-499 mg/dL Very high: >or= 499 mg/dL Literature References: 1. Expert Panel on Integrated Guidelines for Cardiovascular Health and Risk Reduction in Children and Adolescents. Pediatrics 2011;128:S213 2. NCEP Expert Panel. Circulation 2004;110:227 Current Interpretive Data was last revised on 2017. Testing performed by: [address] [address] HDL 42 >=40 mg/dL MAKAYLA Comment: Interpretive Data Ages < or = 19 years Acceptable: >45 mg/dL Borderline low: 40-45 mg/dL Low: <40 mg/dL Ages > or = 20 years Desirable: >or= 60 mg/dL Low: <40 mg/dL Literature References: 1. Expert Panel on Integrated Guidelines for Cardiovascular Health and Risk Reduction in Children and Adolescents. Pediatrics 2011;128:S213 2. NCEP Expert Panel. Circulation 2004;110:227 Current Interpretive Data was last revised on 2017. Testing performed by: [address] [address] LDL, calculated 103 <=129 mg/dL MAKAYLA Comment: Interpretive Data Ages < or = 19 years Acceptable: <110 mg/dL Borderline high: 110-129 mg/dL High: >or= 130 mg/dL Ages > or = 20 years Optimal: <100 mg/dL Near optimal: 100-129 mg/dL Borderline high: 130-159 mg/dL High: >160 mg/dL Calculated using the Zak LDL-C estimating equation. This equation was implemented on 2023. Prior to this date LDL-C was estimated using the Friedewald equation. Literature References: 1. Expert Panel on Integrated Guidelines for Cardiovascular Health and Risk Reduction in Children and Adolescents. Pediatrics 2011;128:S213 2. NCEP Expert Panel. Circulation 2004;110:227 3. Zak Verdin et al. REA Cardiol. 2020 June 21;5(5):540-548. doi: 10.1001/jamacardio.2020.0013 Current Interpretive Data was last revised on 2023. Testing performed by: [address] [address] Non-HDL Cholesterol 138 mg/dL MAKAYLA Comment: Interpretive Data Ages < or = 19 years Acceptable: <120 mg/dL Borderline high: 120-144 mg/dL High: >145 mg/dL Ages > or = 20 years When triglycerides are >200 mg/dL, Non-HDL cholesterol is a secondary target of therapy with treatment goals that are 30 mg/dL greater than the LDL cholesterol target. Literature References: 1. Expert Panel on Integrated Guidelines for Cardiovascular Health and Risk Reduction in Children and Adolescents. Pediatrics 2011;128:S213 2. NCEP Expert Panel. Circulation 2004;110:227 Current Interpretive Data was last revised on 2017. Testing performed by: [address] [address] Chol/HDL ratio 4 MAKAYLA Comment:Testing performed by : [address] [address] Blood 06/11/2024 2:30 PM CDT 06/11/2024 3:57 PM CDT us Deion Pelaez LAB BLOOD ORDERABLES F inal Result MAKAYLA [facility] [facility] Department [place] [address] * Comprehensive metabolic panel (06/11/2024 2:30 PM CDT) Sodium 139 135 - 145 mmol/L Comment:Testing performed by : [address] [address] Potassium, pl 4.0 3.3 - 4.9 mmol/L MAKAYLA Comment:Testing performed by : [address] [address] Chloride 101 97 - 110 mmol/L MAKAYLA Comment:Testing performed by : [address] [address] CO2 25 22 - 32 mmol/L MAKAYLA Comment:Testing performed by : [address] [address] Anion gap 13 2 - 15 mmol/L MAKAYLA Comment:Testing performed by : [address] [address] BUN 24 6 - 25 mg/dL MAKAYLA Comment:Testing performed by : [address] [address] Creatinine 0.90 0.60 - 1.10 mg/dL MAKAYLA Comment:Testing performed by : [address] [address] Glucose 125 70 - 199 mg/dL MAKAYLA Comment: Interpretive Data Fasting glucose >/= 126 mg/dl is diagnostic for diabetes. Fasting is defined as no caloric intake for at least 8 hours. Fasting glucose between 100 mg/dl to 125 mg/dl is diagnostic of prediabetes. In a patient with classic symptoms of hyperglycemia or hyperglycemic crisis, a random glucose >/= 200 mg/dl is diagnostic for diabetes. In the absence of unequivocal hyperglycemia, results should be confirmed by repeat testing. The classification and Diagnosis of Diabetes Diabetes Care 2021; 46: S19-S40. Current interpretive data was last revised 2022. Testing performed by: [address] [address] Calcium 9.4 8.5 - 10.3 mg/dL MAKAYLA Comment:Testing performed by : [address] [address] Bilirubin, total 0.4 0.1 - 1.2 mg/dL [facility] Comment:Testing performed by : [address] [address] Protein, pl 7.6 6.5 - 8.5 g/dL [facility] Comment:Testing performed by : [address] [address] Albumin 4.5 3.5 - 5.0 g/dL [facility] Comment:Testing performed by : [address] [address] Alk phos 92 40 - 130 Units/L MAKAYLA Comment:Testing performed by : [address] [address] ALT 33 7 - 45 Units/L MAKAYLA Comment:Testing performed by : [address] [address] AST 28 10 - 45 Units/L MAKAYLA Comment:Testing performed by : [address] [address] Blood 06/11/2024 2:30 PM CDT 06/11/2024 3:57 PM CDT Deion Pelaez DO LAB BLOOD ORDERABLES F inal Result Performing Organization Address City/[facility]/ZIP Co de Phone Number MAKAYLA [address] [facility] [place] [address] * SCAN - RADIOLOGY/IMAGING (04/02/2024) Anatomical Region Laterality Modality Other Provider Scanning Final Result * Dexa Axial Skeleton Bone Density 1 or 2 Site (04/02/2024) Anatomical Region Laterality Modality Body N/A Radiographic Frida ging Result [facility] Historical Provider MD RUIZ DXA PROCEDURES Final Result * Screening Mammogram Bilateral W Xiang (11/04/2023) [...] 4 AM CDT 05/30/2023 2:35 PM CDT Result [facility] Deion Pelaez DO LAB MICROBIOLOGY - GEN ERAL ORDERABLES Final Result Performing Organization Address City/[facility]/ZIP Co de Phone Number MAKAYLA [address] [facility] [place] [address] * Colonoscopy (09/21/2021) Anatomical Region Laterality Modality Other us Historical Provider ENDOSCOPY PROCEDURES Yadira l Result from Last 3 Months or Most Recently Relevant to Health Maintenance Insurance [facility] H[facility]/PPO [place]: [place] [address] Care Teams Planning Advisor Relationship Specialty Start Date End Date Deion Pelaez DO [address] [place] [id number] PCP - General Family Medicine 05/30/23 Unknown, Notinfile 07/03/19
--- OUTSIDE RECORDS SUMMARY | 2024-06-12 13:56 | XMS_ITS | Encounter Summary ---
Author Organization [facility] Healthcare Address [address] [place] [address] Care Team Providers Care Distribution Accounting Clerk Name Role Phone Unknown, Notinfile Unavailable Unavailable Deion Pelaez DO Primary Care Provider Encounter Details Date Type Department Care Team (Late st Contact Info) Description 06/11/2024 3:[address] 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 Never 06/11/2024 1:55 PM CDT Sofia Walter RN Q2: How many drinks containing alcohol do you have on a typical day when you are drinking? Patient does not drink 06/11/2024 1:55 PM CDT aJylin Walter RN Q3: How often do you have six or more drinks on one occasion? Never 06/11/2024 1:55 PM CDT Sofia Walter RN documented as of this encounter Plan of Treatment Not on file documented as of this encounter Procedures Procedure Name Priority Date/Time Associated Diagnosis Comments EGFR Routine 06/11/2024 2:30 PM CDT Primary hypertension HEPATITIS B CORE ANTIBODY, TOTAL Routine 06/11/2024 2:30 PM CDT Need for hepatitis B screening test HEPATITIS B SURFACE ANTIBODY (IMMUNE STATUS) Routine 06/11/2024 2:30 PM CDT Need for hepatitis B screening test HEPATITIS B SURFACE ANTIGEN Routine 06/11/2024 2:30 PM CDT Need for hepatitis B screening test LIPID PANEL Routine 06/11/2024 2:30 PM CDT Dyslipidemia COMPREHENSIVE METABOLIC PANEL Routine 06/11/2024 2:30 PM CDT Primary hypertension documented in this encounter Results * eGFR (06/11/2024 2:30 PM CDT) [...] of Race in Diagnosing Kidney Disease, JASN 202). The CKD-EPI equation should not be used for patients with unstable renal function and has not been validated in children and those over 70. Current interpretive data was last reviewed 2020. Testing performed by: [address] [address] Blood 06/11/2024 2:30 PM CDT 06/11/2024 3:57 PM CDT us Deion Pelaez DO LAB BLOOD ORDERABLES F inal Result MAKAYLA [address] [facility] Department [place] [address] * Comprehensive metabolic panel (06/11/2024 2:30 PM CDT) Sodium 139 135 - 145 mmol/L Comment:Testing performed by : [address] [address] Potassium, pl 4.0 3.3 - 4.9 mmol/L MAKAYLA Comment:Testing performed by : [address] [address] Chloride 101 97 - 110 mmol/L MAKAYLA Comment:Testing performed by : [address] [address] CO2 25 22 - 32 mmol/L MAKAYLA Comment:Testing performed by : [address] [address] Anion gap 13 2 - 15 mmol/L MAKAYLA Comment:Testing performed by : [address] [address] BUN 24 6 - 25 mg/dL MAKAYLA Comment:Testing performed by : [address] [address] Creatinine 0.90 0.60 - 1.10 mg/dL MAKAYLA Comment:Testing performed by : [address] [address] Glucose 125 70 - 199 mg/dL MAKAYLA [...] was last revised 2022. Testing performed by: [address] [address] Calcium 9.4 8.5 - 10.3 mg/dL MAKAYLA Comment:Testing performed by : [address] [address] Bilirubin, total 0.4 0.1 - 1.2 mg/dL MAKAYLA Comment:Testing performed by : [address] [address] Protein, pl 7.6 6.5 - 8.5 g/dL MAKAYLA Comment:Testing performed by : [address] [address] Albumin 4.5 3.5 - 5.0 g/dL MAKAYLA Comment:Testing performed by : [address] [address] Alk phos 92 40 - 130 Units/L MAKAYLA Comment:Testing performed by : [address] [address] ALT 33 7 - 45 Units/L MAKAYLA Comment:Testing performed by : [address] [address] AST 28 10 - 45 Units/L MAKAYLA Comment:Testing performed by : [address] [address] Blood 06/11/2024 2:30 PM CDT 06/11/2024 3:[address] [facility] LAB BLOOD ORDERABLES F inal Result Performing Organization Address City/[facility]/ZIP Co de Phone Number MAKAYLA [address] [place] [address] * Hepatitis B Surface Antigen Blood (06/11/2024 2:30 PM CDT) Pathologist [facility] HepBsAg Nonreactive Nonreactive Blood 06/11/2024 2:30 PM CDT 06/11/2024 4:48 PM CDT Deion [facility] MICROBIOLOGY - GEN ERAL ORDERABLES Final Result Performing Organization Address [facility] Co de Phone Number MAKAYLA [address] [place] [address] * Hepatitis B core antibody, total Blood (06/11/2024 2:30 PM CDT) Pathologist [facility] Hep B core IgG/IgM Nonreactive Nonreactive Comment:Testing performed by : [facility], [address] [place] [address] Blood 06/11/2024 2:30 PM CDT 06/11/2024 8:17 PM CDT [facility] MICROBIOLOGY - GEN ERAL ORDERABLES Final Result Performing Organization Address [facility] Co de Phone Number MAKAYLA [address] [place] [address] * Hepatitis B surface antibody (immune status) Blood (06/11/2024 2:30 PM CDT) HBsAb (immune status) Nonreactive Comment: Interpretive Data [...] - GEN ERAL ORDERABLES Final Result MAKAYLA [address] [facility] Department [place] [address] * (ABNORMAL) Lipid panel (06/11/2024 2:30 PM [...] last revised on 2017. Testing performed by: [address] [address] Triglycerides 203(H) <=149 mg/dL MAKAYLA Comment: Interpretive Data Ages < [...] last revised on 2017. Testing performed by: [address] [address] HDL 42 >=40 mg/dL MAKAYLA Comment: Interpretive [...] last revised on 2017. Testing performed by: [facility], [address] [place] [address]., [address] LDL, calculated 103 <=129 mg/dL MAKAYLA Comment: [...] 3. Zak Verdin et al. REA Cardiol. 2019June 21;5(5):540-548. doi: 10.1001/jamacardio.2020.0013 Current Interpretive Data was last revised on 2023. Testing performed by: [address] [address] Non-HDL Cholesterol 138 mg/dL MAKAYLA Comment: Interpretive [...] last revised on 2017. Testing performed by: [facility], [address] [place] [address]., [address] Chol/HDL ratio 4 MAKAYLA DAILEY Comment:Testing performed by : [facility], [address] [place] [address]., [address] Blood 06/11/2024 2:30 PM CDT 06/11/2024 3:57 PM CDT us Deion Pelaez DO LAB BLOOD ORDERABLES F inal Result MAKAYLA DAILEY [address] [facility] Department [place] [address] documented in this encounter Visit Diagnoses Diagnosis Dyslipidemia Other and unspecified hyperlipidemia Need for hepatitis B screening test Primary hypertension Unspecified essential hypertension documented in this encounter Care Teams Distribution Accounting Clerk Relationship Specialty Start Date End Date Deion Pelaez DO [address] [place] [address] PCP - General Family Medicine 05/30/23 Unknown, Notinfile 07/03/19 documented as of this encounter
--- OUTSIDE RECORDS SUMMARY | 2024-06-12 13:56 | XMS_ITS | Clinical Summary ---
Author Organization [facility] Address [address] [place] [address] Phone Care Team Providers Care Gold Burnisher Name Role Phone Paradise Villanueva Primary Care Provider [phone] Allergies Active Allergy Reactions Criticality Noted Date [...] Health Maintenance Due Date Last Done Comments HPV/Cotest (21-29) 1982 CERVICAL CANCER SCREENING 1991 HPV/Cotest (30-65) 1991 PAP SMEAR 1991 BREAST CANCER SCREENING 2001 COLORECTAL SCREENING 2006 Colorectal Cancer Screening 2006 FIT-DNA Q 3 years 2006 FIT/FOBT Q 1 year 2006 Flex Sig/CT Colonography Q 5 years 2006 ZOSTER VACCINE (1 of 2) 2011 DTAP/TDAP/TD VACCINES (2 - Td or Tdap) 03/13/2023, 07/25/2003 INFLUENZA VACCINE (#1) 2023 RSV VACCINE (60+ or ) (1 - 1-dose 75+ series) 02/13/2036 Medical Devices Implanted Type Area Deputy Director Of Nursing Device Identifier Shelf Expiration Date Model / Serial / Lot Hemostatic Surgiflo 8ml W/Thrombin 2994 - [id number] Implanted:Qty: 1 on 09/02/2020 by Ray Kennedy MD at [facility] Hemostatic N/A: Neck [employer] 08/20/2021 2994 / / [id number] Plate Zevo Ac 3lvl Ti 57mm [id number] - [id number] Implanted:Qty: 1 on 09/02/2020 by Ray Kennedy MD at [facility] Plate N/A: Spine Cervical Anterior [employer] SOFAMOR DANEK [id number] / / N/A Description:Load no. [id number] Sterilized Sep 01 Screw Zevo Va Sd 3.5x13mm [id number] - [id number] Implanted:Qty: 8 on 09/02/2020 by Ray Kennedy MD at [facility] Screw N/A: Spine Cervical Anterior [employer] [id number] / / N/A Description:Load no. [id number] Sterilized Sep 01 Allograft Bone Cornerstone [id number] - [id number] Implanted:Qty: 1 on 09/02/2020 by Ray Kennedy MD at [facility] N/A: Spine Cervical Anterior [employer]AMOR [employer]ANEK 11/27/2022 [id number] / [id number] / [id number] Description:AKUA REQ#[id number] Allograft Bone Cornerstone [id number] - [id number] Implanted:Qty: 1 on 09/02/2020 by Ray Kennedy MD at [facility] N/A: Spine Cervical Anterior [employer]OR [employer]ANEK 01/28/2023 [id number] / [id number] / [id number] Allograft Bone Cornerstone [id number] - [id number] Implanted:Qty: 1 on 09/02/2020 by Ray Kennedy MD at [facility] N/A: Spine Cervical Anterior [employer]OR [employer]ANE[employer] 01/09/2023 [id number] / [id number] / [id number] Explanted Type Area Deputy Director Of Nursing Device Identifier Shelf Expiration Date Model / Serial / Lot Pin Holding Zevo Plate [id number] - [id number] Explanted:Qty : 2 on 09/02/2020 by Ray Kennedy MD at [facility] Plate N/A: Spine Cervical Anterior [employer]K [id number] / / N/A Description:Load no. [id number] Sep 01 [facility]#[id number] Insurance RX [employer] PLANS (INTERNAL) [facility] Internal Plans RX OPTUM RX Member Subscriber Plan / Payer (Ef fective for All Dates) Name:Palma Zuniga Relation to Subscriber:Self Name:Palma Zuniga Payer ID:Not on file Group ID:[id number] Type:RX Commercial Address: [place] Advance Directives For more information, please contact: [phone] * Full Code (Latest Code Status on File) Date Activated Date Inactivated Comments 09/03/2020 8:18 AM 09/03/2020 1:45 PM Care Teams Gold Burnisher Relationship Specialty Start Date End Date Paradise Villanueva DO [address] [place] [phone] PCP - General Family Practice 08/22/20
--- OUTSIDE RECORDS SUMMARY | 2024-06-12 13:56 | XMS_ITS | Encounter Summary ---
Author Organization [facility] Address 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 Encounter Details Date Type Department Care Team (Late st Contact Info) Description 09/03/2020 Telephone [facility] Admitting [address] [place] [address] [place] [address] [address] Medical Management (Spoke Alec/ Sunita @ Dr Lu Oneill machine stone polisher apprentice) Social History Tobacco Use Types Packs/Day Years [...] on filedocumented in this encounter Care Teams Artificial Glass Eye Maker Relationship Specialty Start Date End Date Paradise Villanueva DO [address] [place] [address] [address] [place] [address] PCP - General Family Practice 08/22/20 documented as of this encounter
--- OUTSIDE RECORDS SUMMARY | 2024-06-12 13:56 | XMS_ITS | Encounter Summary ---
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 No * Result Encounter Note - Jaylin Walter RN - 06/12/2024 10:43 AM CDT lmom documented in this encounter Plan of Treatment Not on file documented as of this encounter Visit Diagnoses Not on filedocumented in this encounter Care Teams Wind Tunnel Mechanic Relationship Specialty Start Date End Date Deion Pelaez DO [address] [place] [address] PCP - General Family Medicine 05/30/23 Unknown, Notinfile 07/03/19 documented as of this encounter
--- OUTSIDE RECORDS SUMMARY | 2024-06-12 13:56 | XMS_ITS | Clinical Summary ---
Author Organization [facility] al Address [address] [place] [address] Care Team Providers Care Blood Bank Laboratory Technologist Name Role Phone Unknown, Notinfile Unavailable Unavailable [...] back pain with degenerative changes Staying active Encounters Date Type Department Care Team Description 06/12/2024 Results Follow-Up [facility] Primary Care [address] [place] [phone] Deion Pelaez DO 06/11/2024 3:00 PM CDT Lab [facility] Office Building [address] [place] [address] Dyslipidemia; Need for hepatitis B screening test; Primary hypertension 06/11/2024 2:30 PM CDT Office Visit [facility] Primary Care [address] [place] [phone] Deion Pelaez, Need for hepatitis B screening test (Primary Dx); Dyslipidemia; Primary hypertension; Morbid obesity (HCC); Routine physical examination; Mild mood disorder; Neuropathy; Degeneration of intervertebral disc of lumbar region with discogenic back pain 04/02/2024 Orders Only [facility] Information Management [address] [place] [address] Scanning, Provider from Last 3 Months Immunizations Immunization Administration Dates Next Due Influenza, [...] on file 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 Gender Identity Not on file Sexual Orientation [...] 06/11/2024 1:51 PM CDT Plan of Treatment Health Maintenance Due Date Last Done Comments Cervical Cancer Screening 1961 DTaP/Tdap/Td Vaccine (2 - Td or Tdap) 03/13/2023 03/13/2013, 07/25/2003 Covid-19 Vaccine ( season) 2023 07/31/2020, 07/10/2020 Influenza Vaccine (Season Ended) 2024 11/21/2022, 10/31/2019, 12/12/2018, Additional history exists Breast Cancer Screening-Mammogram 11/03/2024 11/04/2023, 11/01/2022 Depression Screening 06/11/2025 06/11/2024, 05/30/19 24 Regular Well Visit/Exam 18-64 06/11/2025 06/11/2024, 06/11/2024, 05/30/2023 Colon Cancer Screening-Colonoscopy 09/21/2026 09/21/2021 Zoster Vaccine Completed 10/31/2019, 06/28/2019 Hepatitis C Screening Completed 05/30/2023 Hepatitis B Screening Completed 06/11/2024 Pneumococcal vaccine <65 Aged Out No longer [...] was last reviewed 2020. Testing performed by: [facility], [address] [place] [address]., [address] Blood 06/11/2024 2:30 PM CDT 06/11/2024 3:57 PM CDT Deion Pelaez DO LAB BLOOD ORDERABLES F inal Result [facility] [address] [facility] [place] [address] * Hepatitis B core antibody, total Blood (06/11/2024 2:30 PM CDT) Hep B core IgG/IgM Nonreactive Nonreactive Comment:Testing performed by : [facility], [address] [facility]., [address] Blood 06/11/2024 2:30 PM CDT 06/11/2024 8:17 PM CDT Deion [facility] MICROBIOLOGY - GEN ERAL ORDERABLES Final Result Performing Organization Address [facility] Phone Number [id number] [place] [address] * Hepatitis B surface antibody (immune status) Blood (06/11/2024 2:30 PM CDT) [facility] HBsAb (immune status) Nonreactive Comment: Interpretive Data [...] 2:30 PM CDT 06/11/2024 4:48 PM CDT [facility] MICROBIOLOGY - GEN ERAL ORDERABLES Final Result Performing Organization Address [facility] de Phone Number [address] [address] * Hepatitis B Surface Antigen Blood (06/11/2024 2:30 PM CDT) [facility] HepBsAg Nonreactive Nonreactive Blood 06/11/2024 2:30 PM CDT 06/11/2024 4:48 PM CDT Deion [facility] MICROBIOLOGY - GEN ERAL ORDERABLES Final Result Performing Organization Address [facility] de Phone Number [address] [address] * (ABNORMAL) Lipid panel (06/11/2024 2:30 PM [...] last revised on 2017. Testing performed by: [address] [address] Triglycerides 203(H) <=149 mg/dL MAKAYLA Comment: Interpretive [...] last revised on 2017. Testing performed by: [address] [address] HDL 42 >=40 mg/dL MAKAYLA Comment: Interpretive [...] last revised on 2017. Testing performed by: [address] [address] LDL, calculated 103 <=129 mg/dL MAKAYLA Comment: [...] last revised on 2023. Testing performed by: [address] [address] Non-HDL Cholesterol 138 mg/dL MAKAYLA Comment: Interpretive [...] last revised on 2017. Testing performed by: [address] [address] Chol/HDL ratio 4 MAKAYLA Comment:Testing performed by : [address] [address] Blood 06/11/2024 2:30 PM CDT 06/11/2024 3:57 PM CDT [facility] LAB BLOOD ORDERABLES F inal Result MAKAYLA [address] [facility] [place] [address] * Comprehensive metabolic panel (06/11/2024 2:30 PM CDT) Sodium 139 135 - 145 mmol/L Comment:Testing performed by : [address] [address] Potassium, pl 4.0 3.3 - 4.9 mmol/L MAKAYLA Comment:Testing performed by : [address] [address] Chloride 101 97 - 110 mmol/L MAKAYLA Comment:Testing performed by : [address] [address] CO2 25 22 - 32 mmol/L MAKAYLA Comment:Testing performed by : [address], [place]., [address] Anion gap 13 2 - 15 mmol/L MAKAYLA Comment:Testing performed by : [address] [address] BUN 24 6 - 25 mg/dL MAKAYLA Comment:Testing performed by : [address] [address] Creatinine 0.90 0.60 - 1.10 mg/dL MAKAYLA Comment:Testing performed by : [address] [address] Glucose 125 70 - 199 mg/dL [facility] Comment: Interpretive Data Fasting glucose >/= 126 [...] classification and Diagnosis of Diabetes Diabetes Care 202; 46: S19-S40. Current interpretive data was last revised 2022. Testing performed by: [address] [address] Calcium 9.4 8.5 - 10.3 mg/dL MAKAYLA DAILEY Comment:Testing performed by : [facility], [address] [place] [address]., [address] Bilirubin, total 0.4 0.1 - 1.2 mg/dL MAKAYLA Comment:Testing performed by : [address] [address] Protein, pl 7.6 6.5 - 8.5 g/dL MAKAYLA Comment:Testing performed by : [address] [address] Albumin 4.5 3.5 - 5.0 g/dL MAKAYLA Comment:Testing performed by : [address] [address] Alk phos 92 40 - 130 Units/L MAKAYLA Comment:Testing performed by : [address] [address] ALT 33 7 - 45 Units/L MAKAYLA Comment:Testing performed by : [address] [address] AST 28 10 - 45 Units/L MAKAYLA Comment:Testing performed by : [address] [address] Blood 06/11/2024 2:30 PM CDT 06/11/2024 3:57 PM CDT Deion Pelaez DO LAB BLOOD ORDERABLES F inal Result Performing Organization Address City/State/[facility] Co de Phone Number MAKAYLA [address] [facility] [place] [address] * SCAN - RADIOLOGY/IMAGING (04/02/2024) Anatomical Region Laterality Modality Other us Provider Scanning Final Result * Dexa Axial Skeleton Bone Density 1 or 2 Site (04/02/2024) Anatomical Region Laterality Modality Body N/A Radiographic Frida ging us Historical Provider MD RUIZ DXA PROCEDURES Final Result * Screening Mammogram Bilateral W Xiang (11/04/2023) Anatomical Region Laterality Modality Breast Bilateral Mammography Historical Provider IMG MAMMO PROCEDURES Yadira l Result * Hepatitis [...] MICROBIOLOGY - GEN ERAL ORDERABLES Final Result [facility] [address] [facility] [place] [address] * Colonoscopy (09/21/2021) Anatomical Region Laterality Modality Other Historical Provider ENDOSCOPY PROCEDURES Yadira l Result from Last 3 Months or Most Recently Relevant to Health Maintenance Insurance [facility] Care Teams Blood Bank Laboratory Technologist Relationship Specialty Start Date End Date Deion Pelaez DO [address] [place] [address] PCP - General Family Medicine 05/30/23 Unknown, Notinfile 07/03/19
--- OUTSIDE RECORDS SUMMARY | 2024-06-12 13:56 | XMS_ITS | Encounter Summary ---
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 Encounter Details Date Type Department Care Team (Latest Contact Info) Description 06/11/2024 2:30 PM CDT Office Visit [facility] Primary Care [facility] [phone] Deion Pelaez DO [address] [place] [phone] Need for hepatitis B screening test (Primary Dx); Dyslipidemia; Primary hypertension; Morbid obesity (HCC); Routine physical examination; Mild mood disorder; Neuropathy; Degeneration of intervertebral disc of lumbar region with discogenic back pain Social History Tobacco Use Types Packs/Day Years [...] on file 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 Never 06/11/2024 1:55 PM CDT Sofia Walter RN documented as of this encounter Ordered Prescriptions Prescription Sig Dispense Quantity Refills Last Filled Start Date End Date acyclovir (ZOVIRAX) 400 mg tabletIndications: Routine physical examination Take 1 tablet (400 mg total) by mouth daily 90 tablet 3 06/11/2024 buPROPion XL (WELLBUTRIN XL) 150 mg 24 hr tabletIndications: Mild mood disorder Take 1 tablet (150 mg total) by mouth daily 90 tablet 3 06/11/2024 lisinopril-hydroCH LOROthiazide (ZESTORETIC) 20-25 mg per tabletIndications: Primary hypertension Take 1 tablet by mouth daily 90 tablet 3 06/11/2024 simvastatin (ZOCOR) 40 mg tabletIndications: Dyslipidemia Take 1 tablet (40 mg total) by mouth daily 90 tablet 3 06/11/2024 venlafaxine XR (EFFEXOR-XR) 75 mg 24 hr capsuleIndications :Mild mood disorder Take 3 capsules (225 mg total) by mouth daily 270 capsule 3 06/11/2024 6 documented in this encounter Progress Notes * CaseyDeion, DO - 06/11/2024 2:30 PM CDT Images from the original note were not included. Subjective/Objective Patient ID: Palma Zuniga is a 64 y.o. female. 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 BMI Follow-up includes: nutrition counseling and exercise counseling. HPI: Annual exam Last Annual:May 30, 2023 Chronic conditions reviewed Hypertension reviewed Dyslipidemia reviewed Medications reviewed Medications are current per med list No refill on medications needed Doing well No concerns today Following with Ophthalmology Following with Gynecology Hysteroscopy and D&C next week with Dr. Nick for postmenopausal bleeding Review of Systems Constitutional: Negative for chills, fatigue and fever. Respiratory: Negative for cough and shortness of breath. Cardiovascular: Negative for chest pain and leg swelling. Gastrointestinal: Negative for abdominal pain, constipation, diarrhea, nausea and vomiting. Musculoskeletal: Positive for arthralgias and back pain. Neurological: Positive for numbness. No past medical history on file. Past Surgical History: Procedure Laterality Date BIOPSY BREAST SURGERY CHOLECYSTECTOMY DILATION AND CURETTAGE OF UTERUS EYE SURGERY HEMANGIOMA EXCISION Right Eyelid No family history on file. Social History Social History Narrative Not on file Allergies Allergen Reactions Acetaminophen-Codeine Shortness of breath Codeine Unknown Estrogens Other (See comments) Current Outpatient Medications Medication Sig Dispense Refill Cequa 0.09 % dropperette INSTILL ONE DROP IN EACH EYE TWICE DAILY Miebo 100 % drops acyclovir (ZOVIRAX) 400 mg tablet Take 1 tablet (400 mg total) by mouth daily 90 tablet 3 buPROPion XL (WELLBUTRIN XL) 150 mg 24 hr tablet Take 1 tablet (150 mg total) by mouth daily 90 tablet 3 lisinopril-hydroCHLOROthiazide (ZESTORETIC) 20-25 mg per tablet Take 1 tablet by mouth daily 90 tablet 3 simvastatin (ZOCOR) 40 mg tablet Take 1 tablet (40 mg total) by mouth daily 90 tablet 3 venlafaxine XR (EFFEXOR-XR) 75 mg 24 hr capsule Take 3 capsules (225 mg total) by mouth daily 270 capsule 3 No current facility-administered medications for this visit. Physical Exam Constitutional: General: She is not in acute distress. Appearance: Normal appearance. Cardiovascular: Rate and Rhythm: Normal rate and regular rhythm. Pulmonary: Effort: Pulmonary effort is normal. Breath sounds: Normal breath sounds. Musculoskeletal: Right lower leg: No edema. Left lower leg: No edema. Lymphadenopathy: Cervical: No cervical adenopathy. Neurological: General: No focal deficit present. Mental Status: She is alert and oriented to person, place, and time. Assessment/Plan Diagnoses and all orders for this visit: Need for hepatitis B screening test (Primary) - Hepatitis B Surface Antigen Blood; Future - Hepatitis B core antibody, total Blood; Future - Hepatitis B surface antibody (immune status) Blood; Future Dyslipidemia - Lipid panel; Future - simvastatin (ZOCOR) 40 mg tablet; Take 1 tablet (40 mg total) by mouth daily Primary hypertension - lisinopril-hydroCHLOROthiazide (ZESTORETIC) 20-25 mg per tablet; Take 1 tablet by mouth daily - Comprehensive metabolic panel; Future Morbid obesity (HCC) Routine physical examination - acyclovir (ZOVIRAX) 400 mg tablet; Take 1 tablet (400 mg total) by mouth daily Mild mood disorder - venlafaxine XR (EFFEXOR-XR) 75 mg 24 hr capsule; Take 3 capsules (225 mg total) by mouth daily - buPROPion XL (WELLBUTRIN XL) 150 mg 24 hr tablet; Take 1 tablet (150 mg total) by mouth daily Neuropathy Degeneration of intervertebral disc of lumbar region with discogenic back pain Problem List Cardiac and Vasculature Hypertension Overview Description: 01/25/1997 Chronic, stable condition on Zestoretic Continue same medications Relevant Medications lisinopril-hydroCHLOROthiazide (ZESTORETIC) 20-25 mg per tablet Other Relevant Orders Comprehensive metabolic panel Dyslipidemia Overview Chronic, stable condition statin LDL was 140 in September 2022 and her Zocor was increased from 20 to 40 mg Relevant Medications simvastatin (ZOCOR) 40 mg tablet Other Relevant Orders Lipid panel Endocrine and Metabolic Morbid obesity (HCC) Overview BMI 38 with hypertension and dyslipidemia Working on weight management Mental Health Mild mood disorder Overview Doing well overall on Effexor and Wellbutrin Continue same medications Relevant Medications venlafaxine XR (EFFEXOR-XR) 75 mg 24 hr capsule buPROPion XL (WELLBUTRIN XL) 150 mg 24 hr tablet Neuro Lumbar degenerative disc disease Overview Chronic low back pain with degenerative changes Staying active Neuropathy Overview Distal neuropathy of feet/toes Continue to monitor symptoms Health Encounters Routine physical examination Overview New: May 30, 2023 Relevant Medications acyclovir (ZOVIRAX) 400 mg tablet Overall stable All chronic conditions reviewed and discussed All chronic conditions are stable and compensated Medications reviewed Continue same medications Comply with diet Comply with suggestions for healthy lifestyle Follow-up in 1 year or sooner if needed Previous labs reviewed Labs: Fasting today Immunizations reviewed Colonoscopy: September 2021 and repeat in 5 years Mammogram: October 2023 Pap per Marketing And Promotions Manager Ophthalmology exam: April 2024 Dexa: March 2024 No fall risk Patient is still active Good nutrition Non smoker No alcohol misuse Depression stable on medications No incontinence Deion Pelaez DO documented in this encounter Plan of Treatment Not on file documented as of this encounter Results * Comprehensive metabolic panel (06/11/2024 2:30 PM CDT) Sodium 139 135 - 145 mmol/L Comment:Testing performed by : [address] [address] Potassium, pl 4.0 3.3 - 4.9 mmol/L [facility] DAILEY Comment:Testing performed by : [address] [address] Chloride 101 97 - 110 mmol/L [facility]KAY[facility] DAILEY Comment:Testing performed by : [address] [place]., [address] CO2 25 22 - 32 mmol/L [facility] Comment:Testing performed by : [address] [address] Anion gap 13 2 - 15 mmol/L [facility] Comment:Testing performed by : [address] [address] BUN 24 6 - 25 mg/dL [facility] Comment:Testing performed by : [address] [address] Creatinine 0.90 0.60 - 1.10 mg/dL [facility] Comment:Testing performed by : [address] [address] Glucose 125 70 - 199 mg/dL [facility] Comment: Interpretive Data Fasting glucose >/= 126 [...] was last revised 2022. Testing performed by: [address] [address] Calcium 9.4 8.5 - 10.3 mg/dL [facility] Comment:Testing performed by : [address] [address] Bilirubin, total 0.4 0.1 - 1.2 mg/dL [facility] Comment:Testing performed by : [address] [address] Protein, pl 7.6 6.5 - 8.5 g/dL [facility] Comment:Testing performed by : [address] [address] Albumin 4.5 3.5 - 5.0 g/dL [facility] Comment:Testing performed by : [address] [address] Alk phos 92 40 - 130 Units/L [facility]KAY[facility] DAILEY Comment:Testing performed by : [facility], [address] [place] [address]., [address] ALT 33 7 - 45 Units/L MAKAYLA Comment:Testing performed by : [address] [address] AST 28 10 - 45 Units/L [facility] DAILEY Comment:Testing performed by : [address] [address] Blood 06/11/2024 2:30 PM CDT 06/11/2024 3:57 PM CDT us Deion Pelaez DO LAB BLOOD ORDERABLES F inal Result [facility]LA [address] [facility] Department [place] [address] * (ABNORMAL) Lipid panel (06/11/2024 2:30 PM [...] last revised on 2017. Testing performed by: [address] [address] Triglycerides 203(H) <=149 mg/dL [facility] DAILEY Comment: Interpretive Data Ages < or = [...] last revised on 2017. Testing performed by: [address] [address] HDL 42 >=40 mg/dL [facility]LA Comment: Interpretive [...] last revised on 2017. Testing performed by: [address] [address] LDL, calculated 103 <=129 mg/dL [facility]AYLA Comment: [...] NCEP Expert Panel. Circulation 2004;110:227 3. Zak Christiansen al. REA Cardiol. 2020 June 21;5(5):540-548. doi: 10.1001/jamacardio.2020.0013 Current Interpretive Data was last revised on 2023. Testing performed by: [address] [address] Non-HDL Cholesterol 138 mg/dL MAKAYLA Comment: Interpretive [...] last revised on 2017. Testing performed by: [address] [address] Chol/HDL ratio 4 [facility] Comment:Testing performed by : [address] [address] Blood 06/11/2024 2:30 PM CDT 06/11/2024 3:57 PM CDT Table8 LAB BLOOD ORDERABLES F inal Result Performing Organization Address [facility] de Phone Number [facility] Department of [place], [place] [phone] * Hepatitis B surface antibody (immune status) Blood (06/11/2024 2:30 PM CDT) [facility] HBsAb (immune status) Nonreactive Comment: Interpretive Data [...] 2:30 PM CDT 06/11/2024 4:48 PM CDT Table8 LAB MICROBIOLOGY - GEN ERAL ORDERABLES Final Result Performing Organization Address City/[facility] Co de Phone Number MAKAYLA [address] [place] [address] * Hepatitis B core antibody, total Blood (06/11/2024 2:30 PM CDT) Pathologist [facility] Hep B core IgG/IgM Nonreactive Nonreactive Comment:Testing performed by : [facility], [address] [facility], [place]., [address] Blood 06/11/2024 2:30 PM CDT 06/11/2024 8:17 PM CDT [facility] MICRO[facility]OLOGY - GEN ERAL ORDERABLES Final Result Performing Organization Address City/[facility]/ZIP Co de Phone Number MAKAYLA [address] [place] [address] * Hepatitis B Surface Antigen Blood (06/11/2024 2:30 PM CDT) [facility] HepBsAg Nonreactive Nonreactive Blood 06/11/2024 2:30 PM CDT 06/11/2024 4:48 PM CDT [facility] MI[facility] - GEN ERAL ORDERABLES Final Result Performing Organization Address City/[facility]/ZIP Co de Phone Number MAKAYLA [address] [address] documented in this encounter Visit Diagnoses Diagnosis Need for hepatitis B screening test- Primary Dyslipidemia Other and unspecified hyperlipidemia Primary hypertension Unspecified essential hypertension Morbid obesity (HCC) Morbid obesity Routine physical examination Routine general medical examination at a health care facility Mild mood disorder Unspecified episodic mood disorder Neuropathy 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 disc of lumbar region with discogenic back pain documented in this encounter Discontinued Medications Medication Sig Discontinue Reason Start Date End Da te azelaic acid 15 % gel Apply topically 2 (two) times a day Therapy completed 09/10/2022 06/11/2024 acyclovir (ZOVIRAX) 400 mg tablet Take 1 tablet (400 mg total) by mouth daily Reorder 10/21/2023 06/11/2024 buPROPion XL (WELLBUTRIN XL) 150 mg 24 hr tablet Take 1 tablet (150 mg total) by mouth daily Reorder 10/21/2023 06/11/2024 lisinopril-hydroCHLOROt hiazide (ZESTORETIC) 20-25 mg per tablet Take 1 tablet by mouth daily Reorder 10/21/2023 06/11/2024 venlafaxine XR (EFFEXOR-XR) 75 mg 24 hr capsule Take 1 capsule (75 mg total) by mouth daily Reorder 10/21/2023 06/11/2024 simvastatin (ZOCOR) 40 mg tabletIndications:Dysli pidemia TAKE 1 TABLET BY MOUTH EVERY DAY Reorder 03/05/2024 06/11/2024 documented as of this encounter Care Teams Shipping Manager Relationship Specialty Start Date End Date Deion Pelaez DO [address] [place] [address] PCP - General Family Medicine 05/30/23 Unknown, Notinfile 07/03/19 documented as of this encounter
--- OUTSIDE RECORDS SUMMARY | 2024-06-12 13:56 | XMS_ITS | Clinical Summary ---
Author Organization [facility] Address [facility] [place] [address] Care Team Providers Care Wreath And Garland Maker Hand Name Role Phone RichParadsie Danuta DO Primary Care Provider Yoshi Loaiza DO Unavailable [phone] Allergies Active Allergy Reactions Criticality Noted [...] H/O cervical spine surgery 09/18/2020 Morbid obesity 08/14/2020 Hand dermatitis 08/14/2020 Elevated fasting glucose [...] for preventive health examination 08/29/2012 11/02/2019 Immunizations Immunization Administration Dates Next Due Flublok (Quadrivalent) 10/31/2019 [...] - Oxygen Saturation 98% 01/16/2020 10:51 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 Inhaled Oxygen Concentration - - Weight 117.9 [...] 1991 Cervical Cancer Screening with HPV 1991 Pneumococcal Vaccine: 50+ Years (1 of 1 - PCV) 2011 Colorectal Cancer Screening Colonoscopy (10 Years) 09/21/2021 09/22/2011 DTaP, Tdap and Td Vaccines (2 - Td or Tdap) 03/13/2023 03/13/2013, 07/25/2003 Annual Physical 10/07/2023 10/06/2022, 0810/2021, 08/14/2020, Additional history exists COVID-19 Vaccine ( season) 2023 03/01/2021, 07/31/2020, 07/10/2020 Mammogram Screening 10/31/2023 10/30/2021, 10/28/2020, 06/16/2013 RSV Immunization or 60+ Years (1 - [...] CDT Documented hx of procedure Procedure Note , Generic Conversion, - 12/25/2017 Documented hx of procedure us Generic Conversion Md [facility] PROCEDURE ORDERABLES Final Result Performing Organization Address City/State/[facility] Co de Phone Number [facility] TO EPIC CONVERSION from Last 3 Months or Most Recently Relevant to Health Maintenance Insurance [facility] [place] [address] [facility] Care Teams Wreath And Garland Maker Hand Relationship Specialty Start Date End Date Paradise Villanueva DO [address] [place] [address] PCP - General 02/26/15 Yoshi Loaiza DO [address] [place] [address] Rehabilitation Physician 11/17/21
== END 2024-06-12 12:10 | disposition home or self-care (01) ==
LOC: ANHSURGERY 12:13
PROVIDERS: Anesthesiology; PCP Family Medicine; Visit Provider Obstetrics & Gynecology Gynecology
DX: E87.6 Hypokalemia (principal)
CPT/HCPCS: 36415; 80048

== ENCOUNTER 2024-06-18 00:52 | Day surgery (SDC) | payer OTHER, SELFPAY ==
[2024-06-07 11:15] VITALS: BMI 37.7
--- NOTE | 2024-06-07 11:30 | PC.NURSE ---
Report to the Outpatient Waiting Room, entrance under the green pavilion located off [facility], at time ___1100 am____ on date ___06/18/2024____. Planned Procedure Time: ___1300 (1 pm) .? Time changes happen often and if your time is changed the preop area will call you the afternoon before. - You and your visitor will be asked to self-screen and do not enter if you have any COVID symptoms. Please call surgeon if you need to reschedule. - A mask is optional within the hospital at this time. Patients may have clear liquids (water, carbonated beverages, clear teas, apple juice) until 3 hours prior to surgery with a maximum of 20 ounces. - No food from midnight until time of surgery and no smoking, or chewing tobacco (or any form of nicotine). No chewing gum, candy or mints. Take only the following medications with a SIP of water on the morning of surgery: Acyclovir, bupropion, venlafaxine DO NOT STOP ANY OF YOUR OTHER PRESCRIPTION MEDICATIONS PRIOR TO SURGERY EXCEPT THE FOLLOWING Hold all vitamins and supplements for 3 days per anesthesiologist. Medications to discontinue per physician HOLD lisinopril-hydrochlorothiazide the morning of surgery Please no make-up, nail yi, hairspray, perfume, deodorant, or body powder the day of surgery.? No jewelry (including any body piercings) or valuables the day of surgery, leave them at home.? Please take a shower or bath the night before, or the morning of, surgery with an antibacterial soap.? Wear comfortable, loose fitting clothing.? - Jewelry must be removed prior to entering the operating room.? Rings and piercings that are not removed may be cut off. - The hospital will not accept responsibility for valuables.? - Please leave all valuables, including medications, at home the day of surgery. If you are going home after surgery, a licensed truck driver helper must drive you home.? - NO public transportation without another adult if you receive anesthesia. - We recommend that an adult stay with you for 24 hours following discharge. - We also recommend that you do not drive, make important decision, drink alcoholic beverages, or take any drugs that were not prescribed by your health care provider for at least 24 hours after your discharge time. Follow any additional instructions given to you from your surgeon. Telephone instructions given to ____Penny and asked if any additional questions and then verbalized understanding. Patient advised to call surgeon office or pre surgery nurse liaison [phone] if any additional questions.
--- OUTSIDE RECORDS SUMMARY | 2024-06-18 00:55 | XMS_ITS | Encounter Summary ---
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
--- OUTSIDE RECORDS SUMMARY | 2024-06-18 00:55 | XMS_ITS | Referral Summary ---
Author Organization [facility] al Address [address] [place] [address] Care Team Providers Care Spouter Name Role Phone Unknown, Notinfile Unavailable Unavailable Deion Pelaez DO Primary Care Provider Encounters Date Type Department Care Team Description 06/12/2024 Results Follow-Up [facility] Primary Care [address] [place] [phone] Deion Pelaez DO 06/11/2024 3:00 PM CDT Lab [facility] Office Building [address] [place] [address] Dyslipidemia; Need for hepatitis B screening test; Primary hypertension 06/11/2024 2:30 PM CDT Office Visit [facility] Primary Care [address] [place] [phone] Deion Pelaez DO Need for hepatitis B screening test (Primary Dx); Dyslipidemia; Primary hypertension; Morbid obesity (HCC); Routine physical examination; Mild mood disorder; Neuropathy; Degeneration of intervertebral disc of lumbar region with discogenic back pain 04/02/2024 Orders Only [facility] Health Information Management [address] [place] [address] Scanning, Provider from Last 3 Months Allergies [...] it, Preservative Free, Intramuscular 12/12/2018 Influenza, Unspecified 11/22/2023(Deferr ed: Patient Refused),11/21/2022,12/12/2018, 018,10/22/2016,03/02/2016,03/13/2013 Pfizer SARS-CoV-2 Monovalent [...] on file 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 Testing performed by: [facility], [address] [place] [address]., [address] Blood 06/11/2024 2:30 PM CDT 06/11/2024 3:57 PM CDT [facility] Benigno DO LAB BLOOD ORDERABLES F inal Result Performing Organization Address City/[facility] Co de Phone Number [address] [address] * Hepatitis B core antibody, total Blood (06/11/2024 2:30 PM CDT) Pathologist [facility] [place] Hep B core IgG/IgM Nonreactive Nonreactive Comment:Testing performed by : [facility], [address] [place]., [address] Blood 06/11/2024 2:30 PM CDT 06/11/2024 8:17 PM CDT [facility] MICROBIOLOGY - GEN ERAL ORDERABLES Final Result Performing Organization Address [facility] Co de Phone Number [address] [address] * Hepatitis B surface antibody (immune status) [...] CDT 06/11/2024 4:48 PM CDT Deion Kishore [place] DO LAB MICROBIOLOGY - GEN ERAL ORDERABLES Final Result Performing Organization Address City/[facility] Co de Phone Number MAKAYLA [address] [facility] Department [place] [address] * Hepatitis B Surface Antigen Blood (06/11/2024 2:30 PM CDT) HepBsAg Nonreactive Nonreactive Blood 06/11/2024 2:30 PM CDT 06/11/2024 4:48 PM CDT Deion Pelaez DO LAB MICROBIOLOGY - GEN ERAL ORDERABLES Final Result Performing Organization Address City/[facility] Co de Phone Number MAKAYLA [address] [facility] [place] [address] * (ABNORMAL) Lipid panel (06/11/2024 2:30 PM [...] last revised on 2017. Testing performed by: [facility], [address] [place] [address]., [address] Triglycerides 203(H) <=149 mg/dL [facility] Comment: Interpretive Data Ages < or = [...] last revised on 2017. Testing performed by: [address] [address] HDL 42 >=40 mg/dL MAKAYLA Comment: Interpretive [...] last revised on 2017. Testing performed by: [address] [address] LDL, calculated 103 <=129 mg/dL MAKAYLA Comment: [...] last revised on 2023. Testing performed by: [address] [address] Non-HDL Cholesterol 138 mg/dL MAKAYLA Comment: Interpretive [...] last revised on 2017. Testing performed by: [address] [address] Chol/HDL ratio 4 MAKAYLA Comment:Testing performed by : [address] [address] Blood 06/11/2024 2:30 PM CDT 06/11/2024 3:57 PM CDT us Deion Pelaez LAB BLOOD ORDERABLES F inal Result MAKAYLA [facility] Department [place] [address] * Comprehensive metabolic panel (06/11/2024 2:30 PM CDT) Sodium 139 135 - 145 mmol/L Comment:Testing performed by : [address] [address] Potassium, pl 4.0 3.3 - 4.9 mmol/L MAKAYLA Comment:Testing performed by : [address] [address] Chloride 101 97 - 110 mmol/L MAKAYLA Comment:Testing performed by : [address] [address] CO2 25 22 - 32 mmol/L MAKAYLA Comment:Testing performed by : [address] [address] Anion gap 13 2 - 15 mmol/L MAKAYLA Comment:Testing performed by : [address] [address] BUN 24 6 - 25 mg/dL MAKAYLA Comment:Testing performed by : [address] [address] Creatinine 0.90 0.60 - 1.10 mg/dL MAKAYLA Comment:Testing performed by : [address] [address] Glucose 125 70 - 199 mg/dL MAKAYLA [...] was last revised 2022. Testing performed by: [address] [address] Calcium 9.4 8.5 - 10.3 mg/dL MAKAYLA Comment:Testing performed by : [address] [address] Bilirubin, total 0.4 0.1 - 1.2 mg/dL [facility] Comment:Testing performed by : [address] [address] Protein, pl 7.6 6.5 - 8.5 g/dL [facility] Comment:Testing performed by : [address] [address] Albumin 4.5 3.5 - 5.0 g/dL [facility] Comment:Testing performed by : [address] [address] Alk phos 92 40 - 130 Units/L MAKAYLA Comment:Testing performed by : [address] [address] ALT 33 7 - 45 Units/L MAKAYLA Comment:Testing performed by : [address] [address] AST 28 10 - 45 Units/L MAKAYLA Comment:Testing performed by : [address] [address] Blood 06/11/2024 2:30 PM CDT 06/11/2024 3:57 PM CDT Deion Pelaez DO LAB BLOOD ORDERABLES F inal Result Performing Organization Address City/[facility]/ZIP Co de Phone Number MAKAYLA [address] [facility] [place] [address] * SCAN - RADIOLOGY/IMAGING (04/02/2024) Anatomical Region Laterality Modality Other Provider Scanning Final Result * Dexa Axial Skeleton Bone Density 1 or 2 Site (04/02/2024) Anatomical Region Laterality Modality Body N/A Radiographic Frida ging Result [facility] Historical Provider MD RUIZ DXA [...] AM CDT 05/30/2023 2:35 PM CDT Result [facility] Deion Pelaez DO LAB MICROBIOLOGY - GEN ERAL ORDERABLES Final Result Performing Organization Address City/[facility]/ZIP Co de Phone Number MAKAYLA [address] [facility] [place] [address] * Colonoscopy (09/21/2021) Anatomical Region Laterality Modality Other us Historical Provider ENDOSCOPY PROCEDURES Yadira l Result from Last 3 Months or Most Recently Relevant to Health Maintenance Insurance [facility] CHOICE PLUS Care Teams Spouter Relationship Specialty Start Date End Date Deion Pelaez DO [address] [place] [address] PCP - General Family Medicine 05/30/23 Unknown, Notinfile 07/03/19
--- OUTSIDE RECORDS SUMMARY | 2024-06-18 00:55 | XMS_ITS | Clinical Summary ---
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 Inhaled Oxygen Concentration - - Weight 117.9 [...] PROCEDURE ORDERABLES Final Result Performing Organization Address City/State/[facility] Co de Phone Number [employer] TO EPIC CONVERSION from Last 3 Months or Most Recently Relevant to Health Maintenance Insurance [facility] [place] [address] [facility] Care Teams Sew On Operator Relationship Specialty Start Date End Date Paradise Villanueva DO [address] [place] [address] PCP - General 02/26/15 Yoshi Loaiza DO [address] [place] [address] Recreation Therapy Teacher 11/17/21
--- OUTSIDE RECORDS SUMMARY | 2024-06-18 00:55 | XMS_ITS | Clinical Summary ---
Author Organization [facility] Address [address] [place] [address] Phone Care Team Providers Care Beer Coil Cleaner Name Role Phone Paradise Villanueva Primary Care Provider [phone] Allergies Active Allergy Reactions Criticality Noted Date [...] series) 02/13/2036 Medical Devices Implanted Type Area Pamphlet Distributor Device Identifier Shelf Expiration Date Model / Serial / Lot Hemostatic Surgiflo 8ml W/Thrombin 2994 - [id number] Implanted:Qty: 1 on 09/02/2020 by Ray Kennedy MD at [facility] Hemostatic N/A: Neck [employer] 08/20/2021 2994 / / [id number] Plate Zevo Ac 3lvl Ti 57mm [id number] - [id number] Implanted:Qty: 1 on 09/02/2020 by Ray Kennedy MD at [facility] Plate N/A: Spine Cervical Anterior [employer]ANEK [id number] / / N/A Description:Load no. [id number] Sterilized Sep 01 Screw Zevo Va Sd 3.5x13mm [id number] - [id number] Implanted:Qty: 8 on 09/02/2020 by Ray Kennedy MD at [facility] Screw N/A: Spine Cervical Anterior [employer] [id number] / / N/A Description:Load no. [id number] Sterilized Sep 01 Allograft Bone Cornerstone [id number] - [id number] Implanted:Qty: 1 on 09/02/2020 by Ray Kennedy MD at [facility] N/A: Spine Cervical Anterior [employer] 11/27/2022 [id number] / [id number] / [id number] Description:AKUA REQ#[id number] Allograft Bone Cornerstone [id number] - [id number] Implanted:Qty: 1 on 09/02/2020 by Ray Kennedy MD at [facility] N/A: Spine Cervical Anterior [employer] 01/28/2023 [id number] / [id number] / [id number] Allograft Bone Cornerstone [id number] - [id number] Implanted:Qty: 1 on 09/02/2020 by Ray Kennedy MD at [facility] N/A: Spine Cervical Anterior [employer] 01/09/2023 [id number] / [id number] / [id number] Explanted Type Area Pamphlet Distributor Device Identifier Shelf Expiration Date Model / Serial / Lot Pin Holding Zevo Plate [id number] - [id number] Explanted:Qty : 2 on 09/02/2020 by Ray Kennedy MD at [facility] Plate N/A: Spine Cervical Anterior [employer] [id number] / / N/A Description:Load no. [id number] Sep 01 [facility]#[id number] Insurance RX [employer] PLANS (INTERNAL) [facility] Plans RX [employer] RX Member Subscriber Plan / Payer (Ef fective for All Dates) Name:Palma Zuniga Relation to Subscriber:Self Name:Palma Zuniga Payer ID:Not on file Group ID:[id number] Type:RX Commercial Address: [place] Advance Directives For more information, please contact: [phone] * Full Code (Latest Code Status on File) Date Activated Date Inactivated Comments 09/03/2020 8:18 AM 09/03/2020 1:45 PM Care Teams Beer Coil Cleaner Relationship Specialty Start Date End Date Paradise Villanueva DO [address] [place] [phone] PCP - General Family Practice 08/22/20
--- OUTSIDE RECORDS SUMMARY | 2024-06-18 00:55 | XMS_ITS | Encounter Summary ---
Author Organization [facility] Address 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 Encounter Details Date Type Department Care Team (Late st Contact Info) Description 09/03/2020 [facility]phone [facility] Admitting [address] [place] [address] [place] [address] [address] Medical Management (Spoke Alec/ Sunita @ Dr Lu Oneill transmission calibration engineer) Social History Tobacco Use Types Packs/Day Years [...] on filedocumented in this encounter Care Teams Pit Recorder Relationship Specialty Start Date End Date Paradise Villanueva DO [address] [place] [address] [address] [place] [address] PCP - General Family Practice 08/22/20 documented as of this encounter
--- OUTSIDE RECORDS SUMMARY | 2024-06-18 00:56 | XMS_ITS | Clinical Summary ---
Author Organization [facility] al Address [address] [place] [address] Care Team Providers Care Client Services Representative Name Role Phone Unknown, Notinfile Unavailable Unavailable [...] Department Care Team Description 06/12/2024 Results Follow-Up [facility] Primary Care [address] [place] [phone] Deion Pelaez DO 06/11/2024 3:00 PM CDT Lab [facility] Office Building [address] [place] [address] Dyslipidemia; Need for hepatitis B screening test; Primary hypertension 06/11/2024 2:30 PM CDT Office Visit [facility] Primary Care [address] [place] [phone] Deion Pelaez, Need for hepatitis B screening test (Primary Dx); Dyslipidemia; Primary hypertension; Morbid obesity (HCC); Routine physical examination; Mild mood disorder; Neuropathy; Degeneration of intervertebral disc of lumbar region with discogenic back pain 04/02/2024 Orders Only [facility] Health Information Management [address] [place] [address] Scanning, Provider from Last 3 Months [...] on file 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 Testing performed by: [facility], [address] [place] [address]., [address] Blood 06/11/2024 2:30 PM CDT 06/11/2024 3:57 PM CDT Deion Pelaez DO LAB BLOOD ORDERABLES F inal Result [facility] [address] [facility] Department [place] [address] * Hepatitis B core antibody, total Blood (06/11/2024 2:30 PM CDT) Hep B core IgG/IgM Nonreactive Nonreactive Comment:Testing performed by : [facility], [address] [facility] [place]., [address] Blood 06/11/2024 2:30 PM CDT 06/11/2024 8:17 PM CDT Deion [facility] MICROBIOLOGY - GEN ERAL ORDERABLES Final Result Performing Organization Address [facility] Phone Number [facility] [place] [address] * Hepatitis B surface antibody (immune status) Blood (06/11/2024 2:30 PM CDT) [facility] HBsAb (immune status) Nonreactive Comment: Interpretive Data [...] 2:30 PM CDT 06/11/2024 4:48 PM CDT [facility] MICROBIOLOGY - GEN ERAL ORDERABLES Final Result Performing Organization Address [facility] de Phone Number [address] [address] * Hepatitis B Surface Antigen Blood (06/11/2024 2:30 PM CDT) [facility] HepBsAg Nonreactive Nonreactive Blood 06/11/2024 2:30 PM CDT 06/11/2024 4:48 PM CDT Deion [facility] MICROBIOLOGY - GEN ERAL ORDERABLES Final Result Performing Organization Address [facility] de Phone Number [address] [address] * (ABNORMAL) Lipid panel (06/11/2024 2:30 PM [...] last revised on 2017. Testing performed by: [address] [address] Triglycerides 203(H) <=149 mg/dL MAKAYLA Comment: Interpretive [...] last revised on 2017. Testing performed by: [address] [address] HDL 42 >=40 mg/dL MAKAYLA Comment: Interpretive [...] last revised on 2017. Testing performed by: [address] [address] LDL, calculated 103 <=129 mg/dL MAKAYLA Comment: [...] last revised on 2023. Testing performed by: [address] [address] Non-HDL Cholesterol 138 mg/dL MAKAYLA Comment: Interpretive [...] last revised on 2017. Testing performed by: [address] [address] Chol/HDL ratio 4 MAKAYLA Comment:Testing performed by : [address] [address] Blood 06/11/2024 2:30 PM CDT 06/11/2024 3:57 PM CDT [facility]LO[facility] ORDERABLES F inal Result MAKAYLA [address] [facility] Department [place] [address] * Comprehensive metabolic panel (06/11/2024 2:30 PM CDT) Sodium 139 135 - 145 mmol/L Comment:Testing performed by : [address] [address] Potassium, pl 4.0 3.3 - 4.9 mmol/L MAKAYLA Comment:Testing performed by : [address] [address] Chloride 101 97 - 110 mmol/L MAKAYLA Comment:Testing performed by : [address] [address] CO2 25 22 - 32 mmol/L MAKAYLA Comment:Testing performed by : [address], [place]., [address] Anion gap 13 2 - 15 mmol/L MAKAYLA Comment:Testing performed by : [address] [address] BUN 24 6 - 25 mg/dL MAKAYLA Comment:Testing performed by : [address] [address] Creatinine 0.90 0.60 - 1.10 mg/dL MAKAYLA Comment:Testing performed by : [address] [address] Glucose 125 70 - 199 mg/dL [facility] Comment: Interpretive Data Fasting glucose >/= 126 [...] was last revised 2022. Testing performed by: [address] [address] Calcium 9.4 8.5 - 10.3 mg/dL MAKAYLA DAILEY Comment:Testing performed by : [facility], [address] [place] [address]., [address] Bilirubin, total 0.4 0.1 - 1.2 mg/dL MAKAYLA Comment:Testing performed by : [address] [address] Protein, pl 7.6 6.5 - 8.5 g/dL MAKAYLA Comment:Testing performed by : [address] [address] Albumin 4.5 3.5 - 5.0 g/dL MAKAYLA Comment:Testing performed by : [address] [address] Alk phos 92 40 - 130 Units/L MAKAYLA Comment:Testing performed by : [address] [address] ALT 33 7 - 45 Units/L MAKAYLA Comment:Testing performed by : [address] [address] AST 28 10 - 45 Units/L MAKAYLA Comment:Testing performed by : [address] [address] Blood 06/11/2024 2:30 PM CDT 06/11/2024 3:57 PM CDT Deion Pelaez DO LAB BLOOD ORDERABLES F inal Result Performing Organization Address City/State/[facility] Co de Phone Number MAKAYLA [address] [facility] Department [place] [address] * SCAN - RADIOLOGY/IMAGING (04/02/2024) Anatomical Region [...] MICROBIOLOGY - GEN ERAL ORDERABLES Final Result [facility] [address] [facility] Department [place] [address] * Colonoscopy (09/21/2021) Anatomical Region Laterality Modality Other Historical Provider ENDOSCOPY PROCEDURES Yadira l Result from Last 3 Months or Most Recently Relevant to Health Maintenance Insurance [facility] CHOICE PLUS Care Teams Client Services Representative Relationship Specialty Start Date End Date Deion Pelaez DO [address] [place] [address] PCP - General Family Medicine 05/30/23 Unknown, Notinfile 07/03/19
--- NOTE | 2024-06-18 08:10 | WPDHPUPDATE1 ---
History and Physical Update Update Date/Time: 06/18/24 08:10 History and Physical has been reviewed, including an updated exam of the patient. There are NO changes in the patient's condition. Risks, benefits, and alternatives have been discussed and questions answered. Patient agrees to proceed with procedure.
--- NOTE | 2024-06-18 08:10 | PM.HPGS ---
History of Present Illness History of Present Illness Consent: Risks, benefits, and alternatives have been discussed and questions answered. Patient agrees to proceed with procedure. Chief complaint: post menopausal bleeding Narrative: Palma Zuniga is a 64 year old female with vaginal spotting for several months. Pelvic ultrasound revealed a thickened endometrium at 12mm. It was recommended to proceed with D&C hysteroscopy. Risks of infection, bleeding, perforation, and possible pathology are discussed. Patient voices understanding and agrees to proceed. Review of Systems Review of Systems: not repeated day of surgery; patient states no changes in status [facility] Past Medical History Medical History (Updated 06/18/24 @ 08:14 by Irma Nick MD) History of TB skin testing Positive status post 12 months of treatment Elevated cholesterol Depression HTN (hypertension) Surgical History Surgical History (Updated 06/18/24 @ 08:13 by Irma Nick MD) History of neck surgery History of breast biopsy History of eye surgery Status post cholecystectomy Social History Social History Smoking status: Never smoker Alcohol use details: holidays Substance use: never Substance use type: does not use Living arrangements: alone Meds Home Medications and Allergies Home Medications ?Medication ?Instructions ?Recorded ?Confirmed ?Type acyclovir 400 mg tablet 400 mg PO DAILY 06/07/24 06/07/24 History bupropion HCl 150 mg 24 hr tablet, 150 mg PO DAILY 06/07/24 06/07/24 History extended release lisinopril 20 1 tablet PO DAILY 06/07/24 06/07/24 History mg-hydrochlorothiazide 25 mg tablet simvastatin 40 mg tablet 40 mg PO DAILY 06/07/24 06/07/24 History venlafaxine 75 mg capsule,extended 225 mg PO DAILY 06/07/24 06/07/24 History release 24 hr Allergies Allergy/AdvReac Type Severity Reaction Status Date / Time No Known Allergies Allergy Verified 06/07/24 11:07 Exam Const: General: healthy appearing and alert Orientation/consciousness: patient oriented x3 Resp: Effort & Inspection: normal respiratory effort : External Female Exam: normal external appearance Speculum Exam - Vagina: normal appearance of the vagina and normal vaginal discharge Speculum Exam - Cervix: normal appearance of the cervix Bimanual exam- vagina & uterus: uterine size normal and consistency normal Bimanual Exam- Adnexa, other: normal adnexae and No adnexal tenderness Neuro: General: patient oriented x3 Assessment and Plan Assessment and plan (1) Post-menopausal bleeding: Code(s): N95.0 - Postmenopausal bleeding Status: Acute Assessment and Plan: Plan to proceed with D&C hysteroscopy
[2024-06-18 10:55] VITALS: BP 127/66; PULSE 72; RESP 16; TEMP 36.7; O2SAT 96
[2024-06-18] MEDS: ACETAMINOPHEN 500 MG TABLET 1000 MG PO (11:20)
[2024-06-18] MEDS: LACTATED RINGERS 1,000 ML 30 ML IV CONT (11:25)
--- NOTE | 2024-06-18 12:21 | P.PNAN_ITS ---
Anes - Initial Pre Proc Eval Procedure: Operation Date: 06/18/24 13:00 Proposed Procedures p Hysteroscopy Dilation and Curettage - Irma Nick MD Date/Time: 06/18/24 12:21 Surgeon: Irma Nick MD Pre Op Diagnosis: post menopausal bleeding Patient Data Age: 64 Gender: F Height: 1.8 m Weight: 118 kg Last Vital Signs Temp 36.7 C 06/18/24 10:55 Pulse 72 06/18/24 10:55 Resp 16 06/18/24 10:55 BP 127/66 06/18/24 10:55 Pulse Ox 96 06/18/24 10:55 O2 Del Method Room Air 06/18/24 10:55 Allergies Allergy/AdvReac Type Severity Reaction Status Date / Time No Known Allergies Allergy Verified 06/07/24 11:07 Home Medications ?Medication ?Instructions ?Recorded ?Confirmed ?Type acyclovir 400 mg tablet 400 mg PO DAILY 06/07/24 06/18/24 History bupropion HCl 150 mg 24 hr tablet, 150 mg PO DAILY 06/07/24 06/18/24 History extended release lisinopril 20 1 tablet PO DAILY 06/07/24 06/18/24 History mg-hydrochlorothiazide 25 mg tablet simvastatin 40 mg tablet 40 mg PO DAILY 06/07/24 06/18/24 History venlafaxine 75 mg capsule,extended 225 mg PO DAILY 06/07/24 06/18/24 History release 24 hr Patient hx anesthesia problems: none Family hx anesthesia problems: none Results Review: All pre-operative results and documents have been reviewed as part of the pre- operative evaluation. [facility] Past Medical History Medical History (Updated 06/18/24 @ 08:14 by Irma Nick MD) History of TB skin testing Positive status post 12 months of treatment Elevated cholesterol Depression HTN (hypertension) Surgical History Surgical History (Updated 06/18/24 @ 08:13 by Irma Nick MD) History of neck surgery History of breast biopsy History of eye surgery Status post cholecystectomy Social History Social History Smoking status: Never smoker Alcohol use details: holidays Substance use: never Substance use type: does not use Living arrangements: alone Anes - Eval Final PreProcedure Day of Procedure 06/18/24 12:21 Patient weight: obese Heart: regular rate and rhythm Lungs: clear to auscultation Airway: Mallampati scale class II Neurological: alert and oriented Last oral intake: >/= 8 hours ASA classification: III Emergent: no Anesthetic plan: proceed Anesthesia type and monitoring: general GIVS and standard monitoring Results Review: All pre-operative results and documents have been reviewed as part of the pre- operative evaluation. Informed Consent: The patient's anesthetic plan and its attendant risks and benefits were discussed with the patient/family/POA. Questions were solicited and answers provided to the satisfaction of the patient/family/POA.
[2024-06-18] MEDS: KETOROLAC 15 MG/ML VIAL (*BKC) IV PUSH (12:45)
--- NOTE | 2024-06-18 13:03 | W.PM.PROC2 ---
Procedure Note - Detailed Date of Procedure 06/18/24 Pre-op Diagnosis post menopausal bleeding Post-op Diagnosis Same Procedure Performed D&C hysteroscopy Surgeon Irma Nick MD Anesthesia MAC Findings Cervix is stenotic. Uterus sounds to 9cm. Polyps are noted arising from right, left, and the top of the uterus. The endometrium appears atrophic otherwise. Description of Procedure The patient was taken to the operating room and placed under anesthesia in the dorsal lithotomy position. She was prepped and draped in the usual sterile fashion bivalve speculum was placed in the vagina and the cervix was grasped on the anterior lip with a tenaculum. The os Finders are needed to open the external and internal os. The uterus was then sounded to 9cm and noted to be anteverted and aiming towards the right. The hysteroscope was then placed and through hydrodissection the cavity is entered. Due to the multiple polyps the small Aveta resection device is opened and placed. Under direct visualization the polyps are removed in their entirety. The hysteroscope was then removed. The sharp curette was then used to curette the endometrium until a good uterine cry was noted in all areas. Minimal material was obtained consistent with the atrophic appearance. All instruments are removed and the patient is taken to recovery in stable condition. Sponge, needle, and instrument counts are correct per the OR staff. Estimated Blood Loss 5 Drains No Packing No Pathology Yes (Endometrial shavings and curettings) Complications No immediate complications Condition Stable Disposition PACU
[2024-06-18 13:07] VITALS: BP 122/58; PULSE 73; RESP 14; O2SAT 100
[2024-06-18 13:37] VITALS: BP 117/60; PULSE 66
[2024-06-18] MEDS: oxyCODONE HCL (*CRX) 5 MG TAB IR PO (13:50)
[2024-06-18 14:07] VITALS: BP 127/71; PULSE 62
== END 2024-06-18 14:26 | disposition home or self-care (01) ==
PROVIDERS: PCP Family Medicine; Visit Provider Obstetrics & Gynecology Gynecology
PROC: 0U5B8ZZ Destruction of Endometrium, Via Natural or Artificial Opening Endoscopic (ICD-10-PCS; CPT 58563; principal; 2024-06-18 13:00)
DX: N84.0 Polyp of corpus uteri (principal); N95.0 Postmenopausal bleeding; I10 Essential (primary) hypertension; F32.A Depression, unspecified
CPT/HCPCS: 58558; 88305; A9270; J1885; J2003; J2250; J2405; J2704; J7120

== ENCOUNTER 2024-12-26 13:12 | Outpatient (CLI) | payer OTHER, SELFPAY ==
--- NOTE | ~2024-12-26 | MM_ITS ---
EXAMINATION: MM screening garrett BI w sruthi HISTORY: Screening TECHNIQUE: Craniocaudal and mediolateral oblique 3-D tomosynthesis images were obtained and synthetic 2-D images were generated. CAD analysis was submitted and interpreted. COMPARISON: Comparison to multiple prior studies sequentially, with oldest reviewed study dated , 10/25/2019 BREAST PARENCHYMAL COMPOSITION: There are scattered areas of fibroglandular density. FINDINGS: There is no evidence of suspicious mass, calcification, or architectural distortion to suggest malignancy in either breast. IMPRESSION: 1. No mammographic evidence of malignancy. 2. Recommend routine screening mammography in one year. BI-RADS Category 1: Negative Reviewed, dictated and finalized at location A. ENT CARE PROVIDER
== END 2024-12-26 13:13 | disposition home or self-care (01) ==
LOC: MICIMG 13:14
PROVIDERS: PCP Family Medicine; Visit Provider Nurse Practitioner
DX: Z12.31 Encounter for screening mammogram for malignant neoplasm of breast (principal)
CPT/HCPCS: 77063; 77067